=== PATIENT | female | born 1995 | race Caucasian/White ===

== ENCOUNTER 2016-12-15 16:13 | Inpatient (IN) | payer OTHER ==
[~2016-12-15] VITALS: Ht 154.9 cm; Wt 63.4 kg
[2016-12-15 17:50] VITALS: BP 123/86; PULSE 101; RESP 20
[2016-12-15 17:58] VITALS: Ht 154.9 cm; Wt 63.4 kg
[2016-12-15] MEDS ORDERED: ONDANSETRON 4 MG INJ IV PRN (18:30)
[2016-12-15] MEDS ORDERED: ACETAMINOPHEN 325 MG TAB PO PRN ×2 (18:30→22:30)
[2016-12-15] MEDS: morphine 2 MG INJ IV PRN ×2 (18:54→22:06)
[2016-12-15] MEDS: D5W-0.45 NACL + KCL 20 MEQ 1,000 ML IV SCH (19:50)
[2016-12-15 20:42] VITALS: BP 119/74
[2016-12-15] MEDS ORDERED: INFLUENZA VIRUS VACCINE 0.5 ML SYG IM* ONE (22:00)
[2016-12-16 02:00] VITALS: BP 130/86
[2016-12-16] MEDS: morphine 2 MG INJ IV PRN ×7 (02:27→21:57)
[2016-12-16 06:17] LABS: BASOPHIL # 0.1 10^3/ul (0.0-0.1); EOSINOPHILS # 0.1 10^3/ul (0.0-0.5); EOSINOPHILS % 1.7 % (0.0-7.0); HEMATOCRIT 28.6 % (37.0-47.0); HEMOGLOBIN 9.6 g/dl (12.0-16.0); LYMPHOCYTES # 2.8 10^3/ul (0.8-2.9); LYMPHOCYTES % 45.8 % (15.0-51.0); MEAN CORPUSCULAR HEMOGLOBIN 29.6 pg (29.0-33.0); MEAN CORPUSCULAR HGB CONC 33.6 g/dl (32.0-37.0); MEAN CORPUSCULAR VOLUME 88.3 fl (82.0-101.0); MEAN PLATELET VOLUME 9.1 fl (7.4-10.4); MONOCYTE # 0.5 10^3/ul (0.3-0.9); MONOCYTES % 7.6 % (0.0-11.0); NEUTROPHIL # 2.6 10^3/ul (1.6-7.5); NEUTROPHILS % 43.7 % (39.0-77.0); PLATELET COUNT 255 10^3/UL (140-415); RED BLOOD COUNT 3.24 10^6/ul (4.20-5.40); RED CELL DISTRIBUTION WIDTH 14.2 % (11.5-14.5)
[2016-12-16 06:45] LABS: ALBUMIN 3.6 g/dl (3.3-4.9); ALBUMIN/GLOBULIN RATIO 0.97; BILIRUBIN,INDIRECT 0.6 mg/dl (0-1.1); BILIRUBIN,TOTAL 0.6 mg/dl (0.2-1.3); CALCIUM 8.1 mg/dl (8.4-10.2); CREATININE 0.61 mg/dl (0.44-1.00); TOTAL PROTEIN 7.3 g/dl (6.1-8.1)
[2016-12-16 08:30] VITALS: BP 123/81; RESP 18
[2016-12-16] MEDS: D5W-0.45 NACL + KCL 20 MEQ 1,000 ML IV SCH ×2 (09:02→23:02)
--- NOTE | 2016-12-16 12:41 | HP ---
DATE OF ADMISSION: 12/15/2016 CHIEF COMPLAINT: Abdominal pain. HISTORY OF PRESENT ILLNESS: The patient is a 21-year-old female with past medical history positive for ETOH, history of GI bleed, pancreatitis. The patient presented to [facility] with complaints of abdominal pain and hematemesis for the last couple of weeks. According to medical records the patient reportedly had seizure, however, she does not remember that. The patient denies any fever or chills. Denies any chest pain. Denies any shortness of breath. Denies any diarrhea or constipation. Denies dysuria. The patient stated that she was previously hospitalized a couple of weeks ago with GI bleed. The patient underwent CT of the abdomen and pelvis at [facility] which revealed interval worsening of gallbladder wall thickening with increase in peritoneal edema and fluid overlying the upper abdominal peritoneal and in the right hepatic renal fossa. Also noted subtle left renal striations, nonspecific, and nonsignificant surrounding inflammatory fat stranding, hepatomegaly and bibasilar dependent atelectasis. This patient also underwent chest x-ray, which revealed left lower lobe subsegmental atelectasis, with possible developing pneumonia. The patient required IV morphine for pain controlled and patient was transferred to [facility] for insurance reasons. PAST MEDICAL HISTORY: Per HPI. PAST SURGICAL HISTORY: Patient denies having any surgeries in the past. FAMILY HISTORY: Noncontributory. SOCIAL HISTORY: Patient drinks alcohol, usually drinks 1 bottle of vodka every other day. Last drink 2 days ago. The patient denies any tobacco use. Denies any illicit drug use. REVIEW OF SYSTEMS: Twelve point review of system is negative unless mentioned in HPI. ALLERGIES: NO KNOWN ALLERGIES. HOME MEDICATIONS: No active scripts. PHYSICAL EXAMINATION: GENERAL APPEARANCE: The patient is well developed, well- nourished female, lethargic, but easily arousable. VITAL SIGNS: Temperature is 98.8, pulse is 76, blood pressure 123/81, respiratory rate 18, and oxygen saturation 96 percent on room air. HEENT: Head is atraumatic, normocephalic. Pupils equal, round, reactive to light and accommodation. Oral mucosa is pink and moist. NECK: Supple. No cervical lymphadenopathy. No thyromegaly. CHEST: Lungs clear bilaterally. There is no rhonchi, wheezes, rales noted. CARDIOVASCULAR: Normal S1, S2. No murmurs, gallops, clicks, or rubs noted. ABDOMEN: Round, soft, nondistended. The patient has a right upper quadrant tenderness on palpation and generalized tenderness. Bowel sounds present. There is no guarding, no rebound tenderness. EXTREMITIES: Pulses equal bilaterally 2 plus. No clubbing. No cyanosis. Pulses equal. SKIN: No rash or petechiae noted, except for left lower lesion consistent with herpes lesion. NEUROLOGICAL: Patient is awake, alert, and oriented times 3. No focal deficits noted. Motor strength is 5/5 in all extremities. LABORATORY DATA: On admission, CBC, white blood cells 6.0, hemoglobin 9.6, hematocrit 28.6, and platelets 255. Chemistry: Sodium is 138, potassium 4.0, chloride 104, carbon dioxide 27, anion gap 11, BUN is 5, and creatinine 0.61. Glucose 93, AST is 36, ALT is 40, alkaline phosphate is 100, and folate 41. ASSESSMENT AND PLAN: 1. Possible acute cholecystitis. Keep patient NPO, continue intravenous (IV) fluids. Start the patient on Zosyn. Dr. Gómez is asked to see patient in General Surgery consultation. I will continue morphine p.r.n. for pain and Zofran p.r.n. for nausea. 2. Possible community acquired pneumonia per chest x-ray. Continue patient on Zosyn. We will re-evaluate chest x-ray. 3. Alcohol abuse. We will have social media marketing analyst refer patient to alcohol cessation counseling. 4. We will start Pepcid for peptic ulcer disease prophylaxis and sequential compression device for deep venous thrombosis prophylaxis. Further recommendations based on clinical course. Plan of care discussed with Dr. Burnett. Dictated By: Joyce Ferrer NP /laura/yovanny /Document#: [id number]
[2016-12-16 14:00] VITALS: BP 113/72; RESP 20
[2016-12-16] MEDS ORDERED: NA PHOSPHATE/BIPHOS 133 ML ENEMA PR PRN (16:00)
[2016-12-16] MEDS ORDERED: PIPER-TAZO 3.375 GM IV (PMX) 100 ML ONE (17:34)
[2016-12-16] MEDS: PIPER-TAZO 3.375 GM IV (PMX) 100 ML IVPB SCH (18:05)
[2016-12-16 20:29] VITALS: BP 128/77; RESP 18
[2016-12-17] MEDS: PIPER-TAZO 3.375 GM IV (PMX) 100 ML IVPB SCH ×5 (00:03→23:39)
[2016-12-17] MEDS: morphine 2 MG INJ IV PRN ×7 (01:04→22:22)
[2016-12-17 02:52] VITALS: BP 107/64; RESP 18
[2016-12-17 05:23] LABS: BASOPHIL # 0.1 10^3/ul (0.0-0.1); EOSINOPHILS # 0.2 10^3/ul (0.0-0.5); EOSINOPHILS % 2.6 % (0.0-7.0); HEMATOCRIT 29.1 % (37.0-47.0); HEMOGLOBIN 9.9 g/dl (12.0-16.0); LYMPHOCYTES # 2.8 10^3/ul (0.8-2.9); LYMPHOCYTES % 44.6 % (15.0-51.0); MEAN CORPUSCULAR HEMOGLOBIN 29.6 pg (29.0-33.0); MEAN CORPUSCULAR VOLUME 86.9 fl (82.0-101.0); MEAN PLATELET VOLUME 9.6 fl (7.4-10.4); MONOCYTE # 0.5 10^3/ul (0.3-0.9); MONOCYTES % 8.3 % (0.0-11.0); NEUTROPHIL # 2.7 10^3/ul (1.6-7.5); NEUTROPHILS % 43.2 % (39.0-77.0); PLATELET COUNT 247 10^3/UL (140-415); RED BLOOD COUNT 3.35 10^6/ul (4.20-5.40); RED CELL DISTRIBUTION WIDTH 14.3 % (11.5-14.5); WHITE BLOOD COUNT 6.2 10^3/ul (4.8-10.8)
[2016-12-17 05:51] LABS: CALCIUM 8.6 mg/dl (8.4-10.2); CREATININE 0.65 mg/dl (0.44-1.00); POTASSIUM 3.9 mmol/L (3.5-5.1)
[2016-12-17 07:40] VITALS: BP 111/58; RESP 18
[2016-12-17] MEDS: FAMOTIDINE 20 MG INJ IV SCH (08:07)
[2016-12-17] MEDS ORDERED: LORAZEPAM 2 MG INJ IV ONE (08:30)
[2016-12-17] MEDS: D5W-0.45 NACL + KCL 20 MEQ 1,000 ML IV SCH ×2 (10:30→23:35)
[2016-12-17 11:51] VITALS: BP 113/60; PULSE 76; RESP 18
--- NOTE | 2016-12-17 13:52 | RADRPT ---
PROCEDURE: MRCP. CLINICAL INDICATION: Gallbladder wall edema and biliary dilatation. TECHNIQUE: MRCP was performed on a high field MRI scanner. Patient was examined without contrast. 3-D coronal rotating MIP images of the biliary tree are available for review. COMPARISON: None available. FINDINGS: The gallbladder is mildly distended. There are no discrete internal signal voids to suggest the pres ence of cholelithiasis. There is minimal mild gallbladder wall edema along the hepatic margin. There is no pericholecystic fluid. There is no intrahepatic or extrahepatic biliary duct dilatation. The common bile duct measures 4-5 mm, which is normal in diameter. There is no internal signal void with in the common bile duct to suggest the presence of choledocholithiasis. There is no pancreatic duct dilatation. The liver is enlarged measuring approximately 19.0 cm in a craniocaudal dimension. Scattered bands o f increased T2 signal intensity are present and may reflect mild edema. The spleen measures approxim ately 12.6 cm in a craniocaudal dimension which is within the upper range of normal. The pancreas an d adrenal glands are unremarkable. The kidneys are symmetric in size and signal intensity. There is no hydronephrosis or perinephric ed camille. The abdominal aorta is normal in caliber. There is no periaortic / retroperitoneal lymphadenopathy. The stomach is collapsed. The visualized portions of the small and large intestines are unremarkable . There is no ascites. IMPRESSION: Hepatomegaly with patchy signal abnormalities which may reflect mild parenchymal edema. Correlate wi th appropriate clinical data and with signs and symptoms of hepatitis. Nonspecific gallbladder wall edema. There is no evidence of cholelithiasis, choledocholithiasis or b iliary tract obstruction. RPTAT: AAQQ .Purvi Villa MD, Date Time Electronically viewed and signed by .Purvi Villa MD, MD on 12/17/2016 13:51 .T/
[2016-12-17 15:02] VITALS: BP 108/60; RESP 18
--- NOTE | 2016-12-17 15:20 | PN ---
Date/Time of Note Date/Time of Note DATE: 12/17/16 TIME: 15:16 Assessment/Plan Lines/Catheters IV Catheter Type (from Nrsg): Peripheral IV Urinary Cath still in place: No Assessment/Plan Assessment/Plan 1. Left otitis Media =- 1. Possible acute cholecystitis. - NPO, continue intravenous (IV) fluids. - Zosyn. - per surgery- Dr. Gómez - morphine p.r.n. for pain and Zofran p.r.n. for nausea. 2. Possible community acquired pneumonia per chest x-ray.Continue patient on Zosyn. We will re-evaluate chest x-ray. 3. Alcohol abuse. - social science analyst refer patient to alcohol cessation counseling. 4. Pepcid for peptic ulcer disease prophylaxis 5. Sequential compression device for deep venous thrombosis prophylaxis. Further recommendations based on clinical course. Plan of care discussed with Dr. Burnett. Exam/Review of Systems Vital Signs Vitals Vital Signs Date Time Temp Pulse Resp B/P Pulse Ox O2 Delivery O2 Flow Rate FiO2 12/17/16 15:02 98.0 70 18 108/60 97 12/17/16 11:51 Room Air Intake and Output 12/16/16 12/16/16 12/17/16 15:00 23:00 07:00 Intake Total 2260 ml 750 ml Balance 2260 ml 750 ml Results Result Diagram: 12/17/16 0456 12/17/16 0456 Results 24 hrs Laboratory Tests Test 12/17/16 04:56 White Blood Count 6.2 Red Blood Count 3.35 L Hemoglobin 9.9 L Hematocrit 29.1 L Mean Corpuscular Volume 86.9 Mean Corpuscular Hemoglobin 29.6 Mean Corpuscular Hemoglobin Concent 34.0 Red Cell Distribution Width 14.3 Platelet Count 247 Mean Platelet Volume 9.6 Neutrophils % 43.2 Lymphocytes % 44.6 Monocytes % 8.3 Eosinophils % 2.6 Basophils % 1.0 Nucleated Red Blood Cells % 0.0 Neutrophils # 2.7 Lymphocytes # 2.8 Monocytes # 0.5 Eosinophils # 0.2 Basophils # 0.1 Nucleated Red Blood Cells # 0.0 Sodium Level 139 Potassium Level 3.9 Chloride Level 104 Carbon Dioxide Level 27 Anion Gap 12 Blood Urea Nitrogen 3 L Creatinine 0.65 Glucose Level 118 Calcium Level 8.6 Medications Medications Current Medications Piperacillin Sod/ Tazobactam Sod 100 ml @ 200 mls/hr Q6 IVPB Last administered on 12/17/16 12:01; Admin Dose 200 MLS/HR; Start 12/16/16 at 18:45 Potassium Chloride/Dextrose/ Sod Cl (D5-1/2ns + KCl 20 Meq) 1,000 ml @ 75 mls/ hr [id number] IV Last administered on 12/16/16 23:02; Admin Dose 75 MLS/HR; Start 12/15/16 at 18:30 Ondansetron HCl (Zofran Inj) 4 mg Q6H PRN IV NAUSEA AND/OR VOMITING; Start at 18:30 Morphine Sulfate (morphine) 2 mg Q3 PRN IV pain Last administered on 12/17/16 12:01; Admin Dose 2 MG; Start 12/15/16 at 18:30 Acetaminophen (Tylenol Tab) 650 mg Q4H PRN PO PAIN AND OR ELEVATED TEMP; Start 12/15/16 at 22:30 Famotidine (Pepcid Iv) 20 mg DAILY IV Last administered on 12/17/16 08:07; Admin Dose 20 MG; Start 12/17/16 at 09:00 Sodium Biphosphate/ Sodium Phosphate (Fleet Enema) 133 ml PRN PRN IN CONSTIPATION Last administered on 12/16/16 23:36; Admin Dose 133 ML; Start at 16:00 TALIB FISCHER Dec 17, 2016 15:20
[2016-12-17 16:53] LABS: HAAIG REFLEX REFLEX FILED
--- NOTE | 2016-12-17 17:44 | PN ---
DATE: 12/17/2016 SUBJECTIVE: States that feels better, the appetite is good. She has tolerated clear liquids completely. No fever. No nausea, no vomiting. She has had bowel movement today. VITAL SIGNS: Temperature today is 98.3, heart rate is 76, respiration 18, blood pressure 113/60, saturation 95% room air. LABORATORY DATA: WBC 6200 with 43% segmented, hemoglobin 9.9, hematocrit 29.1. Chemistry: BUN and creatinine, sodium and potassium within normal limits. IMAGES: MRCP was done and the report is as follows: 1. Hepatomegaly with patchy signal abnormalities which may reflect mild parenchymal edema. Correlate with appropriate clinical data and with signs and symptoms of hepatitis. 2. Nonspecific gallbladder wall edema. There is no evidence of cholelithiasis, choledocholithiasis or biliary tract obstruction. Abdomen is soft, mild tenderness right upper quadrant and left upper quadrant. Patient wants to eat more and is hungry. IMPRESSION: Patient has been transferred here with abdominal pain requiring morphine. His lab data so far is within normal limits and magnetic resonance cholangiopancreatography did not show any evidence of gallstone or evidence of choledocholithiasis or common bile duct stone or dilatation of common bile duct. I think requires Gastroenterology consultation for this patient. There is suspicion that she has also seeking pain medication and narcotic as well, this is a consideration. I would recommend to do HIDA scan and also more evaluation of what appears on the CT scan to be a pancreatic cyst in the tail of the pancreas. Dictated By: Luis Armando Dumas MD /laura/hedy /Document#: [id number] JHONNY
[2016-12-17 18:06] LABS: HEPATITIS B CORE ANTIBODY NEGATIVE (NEGATIVE)
[2016-12-17 20:59] VITALS: BP 120/88; RESP 17
[2016-12-17] MEDS: CIPROFLOXACIN HCL OTIC DROP 0.25 ML LEFT EAR SCH (22:31)
--- NOTE | 2016-12-18 01:29 | CONS ---
DATE OF ADMISSION: 12/15/2016 DATE OF CONSULTATION: 12/17/2016 REQUESTING PHYSICIAN: Vincent Gómez MD REASON FOR CONSULTATION: Abdominal pain, possible gallbladder disease, and cholecystitis. HISTORY OF PRESENT ILLNESS: This is a 21-year-old female who was transferred from [facility] on the 15 of December, and the patient actually went to [facility] because of continued right upper quadrant and epigastric abdominal pain and some nausea. History of present illness goes back to about 3 weeks ago when the patient had abdominal pain mainly in the right upper quadrant and epigastric area, and went to a hospital in [place]. They found that she had some pathology grossly. She states that she was told that she had pancreatitis and a cyst of the pancreas. So after 4 days they discharged the patient, she goes home on pain medication, and after a few days she goes to [facility] and over there, because of insurance purposes, they did some investigation, CT scan, ultrasound, and they transferred the patient to this hospital. The patient denies diarrhea or constipation. At [facility] they did a CT scan, which she states revealed interval worsening of gallbladder wall thickening with increase in peritoneal edema and fluid overlying the upper abdominal peritoneum and in the right renal fossa. Also, they noticed some left renal striations, nonspecific, and non-significant surrounding inflammatory fat stranding, hepatomegaly, and bibasilar dependent atelectasis. Also, the patient had a chest x-ray earlier which revealed left lower lobe segmental atelectasis with possible developing pneumonia. The patient has required morphine IV for pain control. PAST MEDICAL HISTORY: As history of present illness. PAST SURGICAL HISTORY: The patient denies any operations in the past. FAMILY HISTORY: Noncontributory. SOCIAL HISTORY: Patient admits that she drinks alcohol, usually drinks 1 bottle of vodka every other day. The patient denies tobacco or illicit drug abuse. REVIEW OF SYSTEMS: Same as history of present illness and past medical history. ALLERGIES: NOT KNOWN. PHYSICAL EXAMINATION: GENERAL: The patient is alert, awake, oriented x3. HEENT: There is herpes simplex lower lip. Normocephalic. NECK: Trach is midline. No thyroid enlargement. No adenopathy. HEART: Regular rhythm. No murmur. LUNGS: Clear to auscultation. ABDOMEN: Abdomen is not distended. Mildly protuberant with fat. Bowel sound is present, almost normal. There is mild tenderness all over. On deep pressure, especially in the left upper quadrant and right upper quadrant. EXTREMITIES: Lower extremities, no pitting edema. LABORATORY: Sodium 138, potassium 4, calcium 8.1, BUN and creatinine normal. Globulin 3.7, slightly elevated, albumin 3.6. AST, ALT, and total bilirubin within normal limits. WBC 6000 with 43 percent segmented neutrophils, hemoglobin 9.6, hematocrit 28.6. IMAGING: I actually reviewed the CT scan copy from [facility] with 1 of the radiologists down here. There is mild edema surrounding the gallbladder. There is possibly dilatation of intrahepatic biliary tree. There was something at the tail of the pancreas, which the radiologist said this is a cyst of the pancreas possibly, he could not mention if this is pseudocyst or another kind of cyst. Liver is enlarged, spleen is slightly enlarged. Otherwise, no other findings except a lot of stool in the left colon and in the rectal area. IMPRESSION AND RECOMMENDATIONS: 1. This is a 22-year-old female with history of alcohol abuse, who is admitted here with possible cholecystitis, but ultrasound and CT scan has not revealed evidence of any stone in the gallbladder or common bile duct. 2. Possible community acquired pneumonia per chest x-ray. The patient has been started on Zosyn per medical service. 3. Alcohol abuse as was mentioned. company laundry worker has been informed to evaluate the patient. The patient is receiving Pepcid for peptic ulcer prophylaxis and also SCD for prophylaxis of deep vein thrombosis. My recommendation is to proceed with the performance of an MRCP to find out exactly what is in the pathology in the gallbladder and common bile duct. Meanwhile, the patient is started on clear liquids. Dictated By: Luis Armando Dumas MD /laura/martina /Document#: [id number]
[2016-12-18 02:00] VITALS: BP 117/86; RESP 17
[2016-12-18] MEDS: morphine 2 MG INJ IV PRN ×7 (02:05→21:21)
[2016-12-18] MEDS: PIPER-TAZO 3.375 GM IV (PMX) 100 ML IVPB SCH ×3 (05:13→17:31)
[2016-12-18 05:29] LABS: BASOPHIL # 0.1 10^3/ul (0.0-0.1); EOSINOPHILS # 0.2 10^3/ul (0.0-0.5); EOSINOPHILS % 3.6 % (0.0-7.0); HEMATOCRIT 28.9 % (37.0-47.0); HEMOGLOBIN 9.5 g/dl (12.0-16.0); LYMPHOCYTES # 3.2 10^3/ul (0.8-2.9); LYMPHOCYTES % 53.4 % (15.0-51.0); MEAN CORPUSCULAR HEMOGLOBIN 28.9 pg (29.0-33.0); MEAN CORPUSCULAR HGB CONC 32.9 g/dl (32.0-37.0); MEAN CORPUSCULAR VOLUME 87.8 fl (82.0-101.0); MEAN PLATELET VOLUME 9.9 fl (7.4-10.4); MONOCYTE # 0.6 10^3/ul (0.3-0.9); NEUTROPHIL # 1.9 10^3/ul (1.6-7.5); NEUTROPHILS % 31.8 % (39.0-77.0); PLATELET COUNT 232 10^3/UL (140-415); RED BLOOD COUNT 3.29 10^6/ul (4.20-5.40); RED CELL DISTRIBUTION WIDTH 14.4 % (11.5-14.5); WHITE BLOOD COUNT 5.9 10^3/ul (4.8-10.8)
[2016-12-18 05:56] LABS: CALCIUM 9.4 mg/dl (8.4-10.2); CREATININE 0.69 mg/dl (0.44-1.00); POTASSIUM 4.1 mmol/L (3.5-5.1)
[2016-12-18] MEDS: FAMOTIDINE 20 MG INJ IV SCH (08:26)
[2016-12-18] MEDS: CIPROFLOXACIN HCL OTIC DROP 0.25 ML LEFT EAR SCH ×2 (08:26→22:46)
[2016-12-18 08:43] VITALS: BP 109/67; RESP 20
[2016-12-18 14:00] VITALS: BP 117/81; RESP 21
--- NOTE | 2016-12-18 15:05 | RADRPT ---
PROCEDURE: HIDA scan CLINICAL INDICATION: 21 -year-old patient complaining of right upper quadrant pain TECHNIQUE: Following the intravenous injection of 8 mCi of Tc-99m mebrofenin, multiple images of t he abdomen were obtained up to 100 minutes post injection. COMPARISON: No prior HIDA scans. FINDINGS: The liver is promptly visualized, demonstrates homogeneous distribution of radionuclide. There is visualization of the common bile duct, gallbladder and gastrointestinal activity within nor mal time. IMPRESSION: No evidence to suggest the presence of common bile or cystic ducts obstruction. RPTAT: HH Physician Wendy Date Time Electronically viewed and signed by Physician Wendy on 12/18/2016 15:04 /
[2016-12-18] MEDS: D5W-0.45 NACL + KCL 20 MEQ 1,000 ML IV SCH (17:30)
--- NOTE | 2016-12-18 20:24 | PN ---
Date/Time of Note Date/Time of Note DATE: 12/18/16 TIME: 20:20 Assessment/Plan VTE Prophylaxis VTE Prophylaxis Intervention: SCD's Lines/Catheters IV Catheter Type (from Nrs): Peripheral IV Central line still needed: Yes Urinary Cath still in place: No Assessment/Plan Chief Complaint/Hosp Course Patient denies any nausea and vomiting, abdominal pain is well controlled, diet advanced to regular, will obtain chest x-ray to evaluate patients for pneumonia. Problems: Assessment/Plan -Abdominal pain, resolving. No evidence of cholelithiasis, choledocholithiasis or biliary tract obstruction per MRCP Dr. Dumas is allowing in General Surgery consultation. continue morphine p.r.n. for pain and Zofran p.r.n. for nausea. - Possible community acquired pneumonia per chest x-ray. Continue patient on Zosyn. We will re-evaluate chest x-ray. - Alcohol abuse. social studies teacher refer patient to alcohol cessation counseling. Exam/Review of Systems Vital Signs Vitals Vital Signs Date Time Temp Pulse Resp B/P Pulse Ox O2 Delivery O2 Flow Rate FiO2 12/18/16 14:00 97.7 72 21 117/81 98 12/17/16 11:51 Room Air Intake and Output 12/17/16 12/17/16 12/18/16 15:00 23:00 07:00 Intake Total 100 ml 1020 ml 1050 ml Output Total 600 ml Balance 100 ml 1020 ml 450 ml Exam Constitutional: alert, oriented Respiratory: clear to auscultation Gastrointestinal: non-tender, soft Extremities: normal pulses Results Result Diagram: 12/18/16 0505 12/18/16 0505 Results 24 hrs Laboratory Tests Test 12/18/16 05:05 White Blood Count 5.9 Red Blood Count 3.29 L Hemoglobin 9.5 L Hematocrit 28.9 L Mean Corpuscular Volume 87.8 Mean Corpuscular Hemoglobin 28.9 L Mean Corpuscular Hemoglobin Concent 32.9 Red Cell Distribution Width 14.4 Platelet Count 232 Mean Platelet Volume 9.9 Neutrophils % 31.8 L Lymphocytes % 53.4 H Monocytes % 10.0 Eosinophils % 3.6 Basophils % 1.0 Nucleated Red Blood Cells % 0.0 Neutrophils # 1.9 Lymphocytes # 3.2 H Monocytes # 0.6 Eosinophils # 0.2 Basophils # 0.1 Nucleated Red Blood Cells # 0.0 Sodium Level 139 Potassium Level 4.1 Chloride Level 103 Carbon Dioxide Level 29 Anion Gap 11 Blood Urea Nitrogen 2 L Creatinine 0.69 Glucose Level 105 Calcium Level 9.4 Medications Medications Current Medications Piperacillin Sod/ Tazobactam Sod 100 ml @ 200 mls/hr Q6 IVPB Last administered on 12/18/16 17:31; Admin Dose 200 MLS/HR; Start 12/16/16 at 18:45 Potassium Chloride/Dextrose/ Sod Cl (D5-1/2ns + KCl 20 Meq) 1,000 ml @ 75 mls/ hr [id number] IV Last administered on 12/18/16 17:30; Admin Dose 75 MLS/HR; Start 12/15/16 at 18:30 Ondansetron HCl (Zofran Inj) 4 mg Q6H PRN IV NAUSEA AND/OR VOMITING; Start at 18:30 Morphine Sulfate (morphine) 2 mg Q3 PRN IV pain Last administered on 12/18/16 18:04; Admin Dose 2 MG; Start 12/15/16 at 18:30 Acetaminophen (Tylenol Tab) 650 mg Q4H PRN PO PAIN AND OR ELEVATED TEMP; Start 12/15/16 at 22:30 Famotidine (Pepcid Iv) 20 mg DAILY IV Last administered on 12/18/16 08:26; Admin Dose 20 MG; Start 12/17/16 at 09:00 Sodium Biphosphate/ Sodium Phosphate (Fleet Enema) 133 ml PRN PRN CO CONSTIPATION Last administered on 12/16/16 23:36; Admin Dose 133 ML; Start at 16:00 Ciprofloxacin HCl (Ciprofloxacin HCl Otic) 2 drop BID LEFT EAR Last administered on 12/18/16 08:26; Admin Dose 2 DROP; Start 12/17/16 at 21:00 LESLIE STEVENS Dec 18, 2016 20:24
[2016-12-18 20:48] VITALS: BP 103/66; RESP 18
--- NOTE | 2016-12-18 21:59 | RADRPT ---
PROCEDURE: XR Chest. CLINICAL INDICATION: Shortness of breath. TECHNIQUE: Single frontal view. COMPARISON: None. FINDINGS: The lungs are clear. The heart size is normal. There is no pleural effusion. There is no pneumothorax. IMPRESSION: 1. Normal chest radiograph. RPTAT: QQ .Elroy Ulloa MD, Date Time Electronically viewed and signed by .Elroy Ulloa MD, on 12/18/2016 21:58 .R/
[2016-12-19] MEDS: PIPER-TAZO 3.375 GM IV (PMX) 100 ML IVPB SCH ×5 (00:09→23:29)
[2016-12-19] MEDS: morphine 2 MG INJ IV PRN ×7 (00:47→23:29)
[2016-12-19 02:47] VITALS: BP 109/66; RESP 18
[2016-12-19 06:37] LABS: CALCIUM 10.1 mg/dl (8.4-10.2); CREATININE 0.65 mg/dl (0.44-1.00); POTASSIUM 3.9 mmol/L (3.5-5.1)
[2016-12-19 08:00] VITALS: BP 125/89; RESP 20
[2016-12-19] MEDS: FAMOTIDINE 20 MG INJ IV SCH (09:28)
[2016-12-19] MEDS: CIPROFLOXACIN HCL OTIC DROP 0.25 ML LEFT EAR SCH ×2 (09:28→21:07)
--- NOTE | 2016-12-19 12:50 | PN ---
DATE: 12/18/2016 SUBJECTIVE: The patient feels better, has tolerated full liquid diet. Yesterday had bowel movement. No nausea, no vomiting. Abdominal pain a little bit less. OBJECTIVE: GENERAL: Alert, awake, and oriented x3. VITAL SIGNS: Temperature 97.8, heart rate 62, respirations 20, blood pressure 117/81. Saturation 98 percent room air. LABORATORY DATA: WBC 5900 today, with the neutrophils 31 percent and lymphocytes 53 percent. Hemoglobin 9.5, hematocrit 28.9. Chemistry: BUN and creatinine, sodium and potassium within normal limits. Serology for hepatitis. B surface antigen negative. Hepatitis B core antibody negative. Hepatitis C antibody negative. IMAGING: HIDA scan was done yesterday which did not reveal presence of any obstruction of cystic duct of common bile duct. The report of the CT scan was reviewed again by myself because in my history and physical as mentioned, somebody had mentioned presents of pancreatic cyst, but there is no mention of pancreatic cyst in the body of the report of the CT scan from [facility]. ASSESSMENT AND PLAN: This is a 22-year-old patient who was transferred from [facility] because of abdominal pain. Current possibility of other cholecystitis. Here to be evaluated the patient. There is has been some swelling and edema around the gallbladder and in the vicinity is but it could have been due to the previous pancreatitis (alcoholic). In any case, we did MRCP which did not reveal any pathology in the biliary tree. HIDA scan which did not show any obstruction of cystic or common bile duct. I do not think patient has cholecystitis, and there is no evidence of a stone in the gallbladder. The patient does not have hepatitis. Therefore, should be further worked up by GI and internal medicine if there is concerned because of pain. There is no surgical abdomen at this time. Dictated By: Luis Armando Dumas MD /laura/kobi /Document#: [id number]
--- NOTE | 2016-12-19 13:04 | PN ---
Date/Time of Note Date/Time of Note DATE: 12/19/16 TIME: 13:03 Assessment/Plan VTE Prophylaxis VTE Prophylaxis Intervention: other Lines/Catheters IV [facility]from [facility] Saline Lock Urinary Cath still in place: No Assessment/Plan Chief Complaint/Hosp Course -Abdominal pain, resolving. No evidence of cholelithiasis, choledocholithiasis or biliary tract obstruction per MRCP Dr. Dumas is allowing in General Surgery consultation. continue morphine p.r.n. for pain and Zofran p.r.n. for nausea. - Possible community acquired pneumonia per chest x-ray. Continue patient on Zosyn. We will re-evaluate chest x-ray. - Alcohol abuse. social human services assistants refer patient to alcohol cessation counseling. Problems: Subjective 24 Hr Interval Summary Free Text/Dictation Patient still have abdoominal pain Exam/Review of Systems Vital Signs Vitals Vital Signs Date Time Temp Pulse Resp B/P Pulse Ox O2 Delivery O2 Flow Rate FiO2 12/19/16 08:00 97.8 79 20 125/89 97 12/17/16 11:51 Room Air Intake and Output 12/18/16 12/18/16 12/19/16 15:00 23:00 07:00 Intake Total 100 ml 1910 ml 900 ml Output Total 1300 ml Balance 100 ml 610 ml 900 ml Exam Constitutional: well developed Head: atraumatic, normocephalic Neck: supple Respiratory: clear to auscultation Cardiovascular: regular rate and rhythm Gastrointestinal: non-tender, soft Extremities: normal pulses Results Result Diagram: 12/18/16 0505 12/19/16 0600 Results 24 hrs Laboratory Tests Test 12/19/16 06:00 Sodium Level 139 Potassium Level 3.9 Chloride Level 103 Carbon Dioxide Level 28 Anion Gap 12 Blood Urea Nitrogen 8 Creatinine 0.65 Glucose Level 112 Calcium Level 10.1 Medications Medications Current Medications Piperacillin Sod/ Tazobactam Sod (Zosyn 3.375gm/ 100 ml (Pmx)) 100 ml @ 200 mls /hr Q6 IVPB Last administered on 12/19/16t 12:50; Admin Dose 200 MLS/HR; Start 12/16/16 at 18:45 Ondansetron HCl (Zofran Inj) 4 mg Q6H PRN IV NAUSEA AND/OR VOMITING; Start at 18:30 Morphine Sulfate (morphine) 2 mg Q3 PRN IV pain Last administered on 12/19/16 12:50; Admin Dose 2 MG; Start 12/15/16 at 18:30 Acetaminophen (Tylenol Tab) 650 mg Q4H PRN PO PAIN AND OR ELEVATED TEMP; Start 12/15/16 at 22:30 Famotidine (Pepcid Iv) 20 mg DAILY IV Last administered on 12/19/16 09:28; Admin Dose 20 MG; Start 12/17/16 at 09:00 Sodium Biphosphate/ Sodium Phosphate (Fleet Enema) 133 ml PRN PRN [place] CONSTIPATION Last administered on 12/16/16 23:36; Admin Dose 133 ML; Start at 16:00 Ciprofloxacin HCl (Ciprofloxacin HCl Otic) 2 drop BID LEFT EAR Last administered on 12/19/16 09:28; Admin Dose 2 DROP; Start 12/17/16 at 21:00 RG RAMIREZ Dec 19, 2016 13:03
[2016-12-19 14:00] VITALS: BP 133/67; RESP 21
[2016-12-19 19:40] VITALS: BP 101/62; RESP 20
[2016-12-20 02:00] VITALS: BP 101/58; RESP 20
[2016-12-20] MEDS: morphine 2 MG INJ IV PRN ×6 (04:47→21:16)
[2016-12-20] MEDS: PIPER-TAZO 3.375 GM IV (PMX) 100 ML IVPB SCH ×3 (06:03→17:30)
[2016-12-20 08:00] VITALS: BP 112/68; RESP 18
[2016-12-20] MEDS: CIPROFLOXACIN HCL OTIC DROP 0.25 ML LEFT EAR SCH ×2 (08:28→19:45)
[2016-12-20] MEDS: FAMOTIDINE 20 MG INJ IV SCH (08:28)
--- NOTE | 2016-12-20 11:23 | PN ---
Date/Time of Note Date/Time of Note DATE: 12/20/16 TIME: 11:23 Assessment/Plan VTE Prophylaxis VTE Prophylaxis Intervention: other Lines/Catheters IV Catheter Type (from [facility]): Saline Lock Urinary Cath still in place: No Assessment/Plan Chief Complaint/Hosp Course -Abdominal pain, resolving. No evidence of cholelithiasis, choledocholithiasis or biliary tract obstruction per MRCP Dr. Dumas is allowing in General Surgery consultation. continue morphine p.r.n. for pain and Zofran p.r.n. for nausea. - Possible community acquired pneumonia per chest x-ray. Continue patient on Zosyn. We will re-evaluate chest x-ray. - Alcohol abuse. social worker aide refer patient to alcohol cessation counseling. Problems: Subjective 24 Hr Interval Summary Free Text/Dictation Patient has no complaints Exam/Review of Systems Vital Signs Vitals Vital Signs Date Time Temp Pulse Resp B/P Pulse Ox O2 Delivery O2 Flow Rate FiO2 12/20/16 08:00 98.1 73 18 112/68 97 12/17/16 11:51 Room Air Intake and Output 12/19/16 12/19/16 12/20/16 15:00 23:00 07:00 Intake Total 100 ml 1160 ml 950 ml Balance 100 ml 1160 ml 950 ml Exam Constitutional: well developed Head: atraumatic, normocephalic Neck: supple Respiratory: clear to auscultation Cardiovascular: regular rate and rhythm Gastrointestinal: non-tender, soft Extremities: normal pulses Results Result Diagram: 12/18/16 0505 12/19/16 0600 Medications Medications Current Medications Piperacillin Sod/ Tazobactam Sod (Zosyn 3.375gm/ 100 ml (Pmx)) 100 ml @ 200 mls /hr Q6 IVPB Last administered on 12/20/16 06:03; Admin Dose 200 MLS/HR; Start 12/16/16 at 18:45 Ondansetron HCl (Zofran Inj) 4 mg Q6H PRN IV NAUSEA AND/OR VOMITING; Start at 18:30 Morphine Sulfate (morphine) 2 mg Q3 PRN IV pain Last administered on 12/20/16 08:28; Admin Dose 2 MG; Start 12/15/16 at 18:30 Acetaminophen (Tylenol Tab) 650 mg Q4H PRN PO PAIN AND OR ELEVATED TEMP; Start 12/15/16 at 22:30 Famotidine (Pepcid Iv) 20 mg DAILY IV Last administered on 12/20/16 08:28; Admin Dose 20 MG; Start 12/17/16 at 09:00 Sodium Biphosphate/ Sodium Phosphate (Fleet Enema) 133 ml PRN PRN [place] CONSTIPATION Last administered on 12/16/16 23:36; Admin Dose 133 ML; Start at 16:00 Ciprofloxacin HCl (Ciprofloxacin HCl Otic) 2 drop BID LEFT EAR Last administered on 12/20/16 08:28; Admin Dose 2 DROP; Start 12/17/16 at 21:00 RG RAMIREZ Dec 20, 2016 11:23
[2016-12-20 14:00] VITALS: BP 104/66; RESP 18
[2016-12-20 19:37] VITALS: BP 108/60; RESP 20
--- NOTE | 2016-12-20 23:22 | PN ---
DATE: 12/20/2016 SUBJECTIVE DATA: The patient states that she still has some pain in the right upper quadrant. It seems that after eating food, she feels nauseous, but no vomiting. Has not had a bowel movement since admission, but passing gas. No fever, no chills. OBJECTIVE DATA: VITAL SIGNS: Temperaturei 98.1, pulse 73, respirations 18, blood pressure 112/68, saturation 97 percent on room air. GENERAL: Alert and oriented times 3. Does not appear in acute distress. LUNGS: Clear. ABDOMEN: Soft. Mild tenderness in right upper quadrant on deep pressure. EXTREMITIES: Lower extremities, no calf tenderness, no pitting edema. LABORATORY AND DIAGNOSTIC DATA: No labs today. IMAGING: Last chest x-ray was done 2 days ago. Report says there is normal chest radiograph. ASSESSMENT AND PLAN: 1. A 22-year-old female transferred from [facility] because of possible cholecystitis and possible community acquired pneumonia. The patient was started on Zosyn. HIDA scan negative. No gallstones. Two days ago her chest x-ray was normal reported. 2. From a surgical point of view, the patient does not have acute cholecystitis, does not have any acute abdomen. 3. Final treatment and management and decision for discharge is going to be on medical service. 4. The surgical service is continuing to follow the patient. Dictated By: MD COLLEEN Morales/laura/martina /Document#: [id number] JHONNY
[2016-12-21] MEDS: PIPER-TAZO 3.375 GM IV (PMX) 100 ML IVPB SCH ×4 (00:19→18:25)
[2016-12-21] MEDS: morphine 2 MG INJ IV PRN ×6 (00:23→18:25)
[2016-12-21 02:03] VITALS: BP 146/76; RESP 18
[2016-12-21 05:29] LABS: BASOPHIL # 0.1 10^3/ul (0.0-0.1); BASOPHILS % 0.7 % (0.0-2.0); EOSINOPHILS # 0.3 10^3/ul (0.0-0.5); EOSINOPHILS % 2.9 % (0.0-7.0); HEMATOCRIT 31.4 % (37.0-47.0); HEMOGLOBIN 10.1 g/dl (12.0-16.0); LYMPHOCYTES # 3.8 10^3/ul (0.8-2.9); LYMPHOCYTES % 42.5 % (15.0-51.0); MEAN CORPUSCULAR HEMOGLOBIN 28.7 pg (29.0-33.0); MEAN CORPUSCULAR HGB CONC 32.2 g/dl (32.0-37.0); MEAN CORPUSCULAR VOLUME 89.2 fl (82.0-101.0); MEAN PLATELET VOLUME 10.4 fl (7.4-10.4); MONOCYTE # 0.8 10^3/ul (0.3-0.9); MONOCYTES % 9.3 % (0.0-11.0); NEUTROPHILS % 44.5 % (39.0-77.0); PLATELET COUNT 251 10^3/UL (140-415); RED BLOOD COUNT 3.52 10^6/ul (4.20-5.40); RED CELL DISTRIBUTION WIDTH 15.5 % (11.5-14.5); WHITE BLOOD COUNT 8.9 10^3/ul (4.8-10.8)
[2016-12-21 05:46] LABS: CALCIUM 9.7 mg/dl (8.4-10.2); CREATININE 0.74 mg/dl (0.44-1.00)
[2016-12-21 08:03] VITALS: BP 99/61; RESP 16
[2016-12-21] MEDS: FAMOTIDINE 20 MG INJ IV SCH (08:09)
[2016-12-21 14:32] VITALS: BP 112/60; RESP 16
[2016-12-21] MEDS: CIPROFLOXACIN HCL OTIC DROP 0.25 ML LEFT EAR SCH (17:02)
[2016-12-21] MEDS ORDERED: FAMO20TA18 PO (18:47)
[2016-12-21] MEDS ORDERED: LEVO500T72 PO (18:47)
[2016-12-21] MEDS ORDERED: METR500T PO (18:47)
[2016-12-21] MEDS ORDERED: HYDR-906 PO (18:47)
[2016-12-21 19:40] VITALS: BP 111/72; PULSE 89; RESP 18
--- NOTE | 2016-12-21 19:45 | DS ---
Date/Time of Note Date/Time of Note DATE: 12/21/16 TIME: 19:43 Discharge Summary Admission/Discharge Info Admit Date/Time Dec 15, 2016 at 17:41 Discharge Date/Time Patient Condition: Stable Hx of Present Illness The patient is a 21-year-old female with past medical history positive for ETOH, history of GI bleed, pancreatitis. The patient presented to [facility] with complaints of abdominal pain and hematemesis for the last couple of weeks. According to medical records the patient reportedly had seizure, however, she does not remember that. The patient denies any fever or chills. Denies any chest pain. Denies any shortness of breath. Denies any diarrhea or constipation. Denies dysuria. The patient stated that she was previously hospitalized a couple of weeks ago with GI bleed. The patient underwent CT of the abdomen and pelvis at [facility] which revealed interval worsening of gallbladder wall thickening with increase in peritoneal edema and fluid overlying the upper abdominal peritoneal and in the right hepatic renal fossa. Also noted subtle left renal striations, nonspecific, and nonsignificant surrounding inflammatory fat stranding, hepatomegaly and bibasilar dependent atelectasis. This patient also underwent chest x-ray, which revealed left lower lobe subsegmental atelectasis, with possible developing pneumonia. The patient required IV morphine for pain controlled and patient was transferred to [facility] for insurance reasons. Hospital Course -Abdominal pain, resolving. No evidence of cholelithiasis, choledocholithiasis or biliary tract obstruction per MRCP Dr. Dumas is allowing in General Surgery consultation. Tolerates diet well without any nausea and vomiting continue morphine p.r.n. for pain and Zofran p.r.n. for nausea. - Possible community acquired pneumonia per chest x-ray. Continue patient on Zosyn. Repeat chest x-ray is negative - Alcohol abuse. social worker masters refer patient to alcohol cessation counseling. Home Meds Active Scripts Hydrocodone/Acetaminophen ([place] 5-325 Tablet) 1 Each Tablet, 1 EACH PO Q4 for PAIN, #30 TAB Prov:LESLIE STEVENS 12/21/16 Metronidazole* (Flagyl*) 500 Mg Tablet, 500 MG PO Q8 for 5 Days, TAB Prov:LESLIE STEVENS 12/21/16 Levofloxacin* (Levaquin*) 500 Mg Tablet, 500 MG PO DAILY for 5 Days, TAB Prov:LESLIE STEVENS 12/21/16 Famotidine* (Famotidine*) 20 Mg Tablet, 20 MG PO DAILY for 14 Days, TAB Prov:LESLIE STEVENS 12/21/16 Follow-up Plan Follow-up with PMD in 2 weeks Primary Care Provider Not On Staff Doctor Time spent on discharge: > 30 minutes Pending Labs Laboratory Tests Test 12/21/16 04:54 White Blood Count 8.910^3/ul (4.8-10.8) Red Blood Count 3.5210^6/ul (4.20-5.40) Hemoglobin 10.1g/dl (12.0-16.0) Hematocrit 31.4% (37.0-47.0) Mean Corpuscular Volume 89.2fl (82.0-101.0) Mean Corpuscular Hemoglobin 28.7pg (29.0-33.0) Mean Corpuscular Hemoglobin Concent 32.2g/dl (32.0-37.0) Red Cell Distribution Width 15.5% (11.5-14.5) Platelet Count 32770^3/UL (140-415) Mean Platelet Volume 10.4fl (7.4-10.4) Neutrophils % 44.5% (39.0-77.0) Lymphocytes % 42.5% (15.0-51.0) Monocytes % 9.3% (0.0-11.0) Eosinophils % 2.9% (0.0-7.0) Basophils % 0.7% (0.0-2.0) Nucleated Red Blood Cells % 0.0/100WBC (0.0-0.0) Neutrophils # 4.010^3/ul (1.6-7.5) Lymphocytes # 3.810^3/ul (0.8-2.9) Monocytes # 0.810^3/ul (0.3-0.9) Eosinophils # 0.310^3/ul (0.0-0.5) Basophils # 0.110^3/ul (0.0-0.1) Nucleated Red Blood Cells # 0.010^3/ul (0.0-0.0) Sodium Level 140mmol/L (135-144) Potassium Level 4.0mmol/L (3.5-5.1) Chloride Level 104mmol/L (97-110) Carbon Dioxide Level 27mmol/L (21-31) Anion Gap 13 (8-16) Blood Urea Nitrogen 9mg/dl (7-20) Creatinine 0.74mg/dl (0.44-1.00) Glucose Level 108mg/dl (70-220) Calcium Level 9.7mg/dl (8.4-10.2) LESLIE STEVENS Dec 21, 2016 19:45
--- NOTE | 2016-12-22 07:10 | PN ---
DATE: 12/21/2016 SUBJECTIVE DATA: The patient is complaining of some sharp throbbing pain in the right upper quadrant. She claims that the pain is the same pain and the same kind in quality and nature that brought her to this hospital. She had a bowel movement today. No fever. No nausea, no vomiting. OBJECTIVE: Awake, alert, oriented x3. Lying down in the bed. Does not appear distressed. VITAL SIGNS: Temperature 98.4, heart rate 71, respirations 16, blood pressure 112/62, saturation 96 percent room air. ABDOMEN: Abdomen is soft. LABORATORY AND DIAGNOSTIC DATA: WBC today is 8,900, normal, with 44 segmented and 42 percent lymphocytes. Hemoglobin is 10.1, stable. Chemistry: Sodium, potassium, BUN, creatinine all within normal limits. As was mentioned before, last chest x-ray on 12/18 is normal and there is no evidence of pneumonia. ASSESSMENT AND PLAN: This is a 21-year-old female, who was transferred from [facility] because of abdominal pain and possibly gallbladder disease and cholecystitis. The CT scan that they did over there showed some inflammation, some edema all around the gallbladder and other peritoneal surfaces. We did MRCP here which was negative. We did HIDA scan, which was negative. A hepatitis panel was negative. Today, CBC is normal so far. Abdomen is soft, so I do not know exactly if really the patient has pain all over or she does have pain. She is using narcotic around the clock. She does not have a surgical abdomen and surgical pathology at this time that I can detect. So, we will leave it to internal medicine people to solve the problem. Dictated By: Luis Armando Dumas MD /laura/nate /Document#: [id number]
[2016-12-22] MEDS ORDERED: FAMOTIDINE 20 MG TAB PO SCH (09:00)
== END 2016-12-21 19:38 | disposition home or self-care (01) | DRG 391 ==
LOC: PP2 17:41
PROVIDERS: ADMIT Internal Medicine; ATTEND Internal Medicine
DX: R10.9 Unspecified abdominal pain (principal); J18.9 Pneumonia, unspecified organism; F10.10 Alcohol abuse, uncomplicated; Z87.19 Personal history of other diseases of the digestive system
CPT/HCPCS: 71010; 74181; 78226; 80048; 80053; 83690; 85025; 86704; 86709; 86803; 87081; 87340; 90686; A9537; J2060; J2270; J2405; J2543; J3480

== ENCOUNTER 2016-12-27 23:06 | Inpatient (IN) | payer OTHER ==
[~2016-12-27] VITALS: Ht 154.9 cm; Wt 62.0 kg
[~2016-12-27 23:06] MED LIST: FAMO20TA18 PO; HYDR-906 PO; LEVO500T72 PO; METR500T PO
[2016-12-27 23:08] VITALS: Ht 154.9 cm; Wt 62.0 kg
[2016-12-27] MEDS ORDERED: SODIUM CHLORIDE 0.9% 1L BAG IV* STA (23:22)
[2016-12-28 00:07] LABS: BASOPHIL # 0.1 10^3/ul (0.0-0.1); BASOPHILS % 1.3 % (0.0-2.0); EOSINOPHILS % 0.3 % (0.0-7.0); HEMATOCRIT 33.3 % (37.0-47.0); HEMOGLOBIN 11.1 g/dl (12.0-16.0); LYMPHOCYTES % 48.1 % (15.0-51.0); MEAN CORPUSCULAR HEMOGLOBIN 29.1 pg (29.0-33.0); MEAN CORPUSCULAR HGB CONC 33.3 g/dl (32.0-37.0); MEAN CORPUSCULAR VOLUME 87.2 fl (82.0-101.0); MEAN PLATELET VOLUME 9.6 fl (7.4-10.4); MONOCYTES % 9.6 % (0.0-11.0); NEUTROPHIL # 4.2 10^3/ul (1.6-7.5); NEUTROPHILS % 40.5 % (39.0-77.0); PLATELET COUNT 369 10^3/UL (140-415); RED BLOOD COUNT 3.82 10^6/ul (4.20-5.40); RED CELL DISTRIBUTION WIDTH 15.1 % (11.5-14.5); WHITE BLOOD COUNT 10.4 10^3/ul (4.8-10.8)
[2016-12-28 00:12] LABS: ADD UMIC YES; UR ASCORBIC ACID NEGATIVE (NEGATIVE); UR BACTERIA FEW /HPF (NONE SEEN); UR BILIRUBIN (Dip) NEGATIVE (NEGATIVE); UR BLOOD (Dip) NEGATIVE (NEGATIVE); UR CLARITY SLIGHTLY CLOUDY (CLEAR); UR COLOR YELLOW (YELLOW); UR GLUCOSE (Dip) NEGATIVE (NEGATIVE); UR KETONES (Dip) TRACE mg/dL (NEGATIVE); UR LEUKOCYTE ESTERASE (Dip) TRACE Leu/ul (NEGATIVE); UR MUCUS FEW /HPF (NONE SEEN); UR NITRITE (Dip) NEGATIVE (NEGATIVE); UR RBC 2 /HPF (0-5); UR SPECIFIC GRAVITY (Dip) 1.019 (1.003-1.030); UR SQUAMOUS EPITHELIAL CELL FEW /HPF (FEW); UR TOTAL PROTEIN (Dip) NEGATIVE (NEGATIVE); UR UROBILINOGEN (Dip) NEGATIVE (NEGATIVE)
[2016-12-28 00:35] LABS: BARBITURATES NEGATIVE (NEGATIVE); BENZODIAZEPINES POSITIVE (NEGATIVE); CANNABINOIDS NEGATIVE (NEGATIVE); COCAINE POSITIVE (NEGATIVE); OPIATES NEGATIVE (NEGATIVE)
--- NOTE | 2016-12-28 00:36 | RADRPT ---
PROCEDURE: Chest xray. CLINICAL INDICATION: Possible sepsis TECHNIQUE: A portable upright AP view of the chest was obtained. COMPARISON: 12/18/2016 FINDINGS: The cardiomediastinal silhouette is within normal limits. The lungs are well expanded and show norm al vascularity. No focal opacity, pleural effusion, or pneumothorax is identified. The skeletal st ructures and soft tissues are unremarkable. IMPRESSION: No acute intrathoracic abnormality. RPTAT:PP .Abi Restrepo MD, Date Time Electronically viewed and signed by .Abi Restrepo MD, on 12/28/2016 00:35 .K/
[2016-12-28 00:43] LABS: ALANINE AMINOTRANSFERASE 52 IU/L (13-69); ALBUMIN 4.6 g/dl (3.3-4.9); ALBUMIN/GLOBULIN RATIO 0.97; ALKALINE PHOSPHATASE 93 IU/L (42-121); ANION GAP 23 (8-16); ASPARTATE AMINO TRANSFERASE 70 IU/L (15-46); BLOOD UREA NITROGEN 17 mg/dl (7-20); CALCIUM 9.6 mg/dl (8.4-10.2); CARBON DIOXIDE 20 mmol/L (21-31); CHLORIDE 108 mmol/L (97-110); CREATININE 0.57 mg/dl (0.44-1.00); GLUCOSE 131 mg/dl (70-220); POTASSIUM 3.9 mmol/L (3.5-5.1); SODIUM 147 mmol/L (135-144); TOTAL PROTEIN 9.3 g/dl (6.1-8.1)
[2016-12-28 00:51] LABS: INR 1.09; PROTIME 14.1 Sec (12.2-14.2); PT RATIO 1.1
[2016-12-28] MEDS ORDERED: CEFEPIME 2GM/50 ML (PMX) 50 ML IVPB STA (01:04)
[2016-12-28 01:05] LABS: TROPONIN-I < 0.012 ng/ml (0.00-0.12)
[2016-12-28] MEDS ORDERED: VANCOMYCIN 1 GM (PMX) 250 ML IVPB ONE (01:30)
--- NOTE | 2016-12-28 01:39 | ERD ---
ER Documentation Chief Complaint Date/Time DATE: 12/28/16 TIME: 01:38 Chief Complaint c/o BLE pain, weakness, and numbness x 2 wks. No trauma. HPI This is a 21-year-old female here with bilateral extremity pain weakness and numbness for 2 weeks. She was recently admitted for pancreatitis and polysubstance abuse. She denies any fevers or chills. She denies any focal neurological complaints. Patient just says that she feels mildly weak. No nausea no vomiting no chills. No other current complaints. Symptomology started 2 days ago. ROS All systems reviewed and are negative except as per history of present illness. Medications Home Meds Active Scripts Hydrocodone/Acetaminophen ([place] 5-325 Tablet) 1 Each Tablet, 1 EACH PO Q4 for PAIN, #30 TAB Prov:LESLIE STEVENS 12/21/16 Metronidazole* (Flagyl*) 500 Mg Tablet, 500 MG PO Q8 for 5 Days, TAB Prov:LESLIE STEVENS 12/21/16 Levofloxacin* (Levaquin*) 500 Mg Tablet, 500 MG PO DAILY for 5 Days, TAB Prov:LESLIE STEVENS 12/21/16 Famotidine* (Famotidine*) 20 Mg Tablet, 20 MG PO DAILY for 14 Days, TAB Prov:LESLIE STEVENS 12/21/16 Allergies Allergies: Coded Allergies: No Known Allergies (Verified Allergy, Unknown, 12/15/16) PMhx/Soc Medical and Surgical Hx: pt denies Surgical Hx History of Surgery: No Anesthesia Reaction: No Hx Neurological Disorder: Yes (PATIENT STATES FATHER WITNESSED SEIZURE YESTERDAY ) Hx Respiratory Disorders: Yes (Hx: asthma ) Hx Cardiac Disorders: No Hx Psychiatric Problems: Yes (Hx: anxiety ) Hx Miscellaneous Medical Probl: No Hx Alcohol Use: Yes Hx Substance Use: No Hx Tobacco Use: No Smoking Status: Never smoker Physical Exam Vitals Vital Signs Date Time Temp Pulse Resp B/P Pulse Ox O2 Delivery O2 Flow Rate FiO2 12/27/16 23:08 98.4 120 20 119/70 96 Physical Exam Const: [] Head: Atraumatic Eyes: Normal Conjunctiva ENT: Normal External Ears, Nose and Mouth. Neck: Full range of motion..~ No meningismus. Resp: Clear to auscultation bilaterally Cardio: Regular rate and rhythm, no murmurs Abd: Soft, non tender, non distended. Normal bowel sounds Skin: No petechiae or rashes Back: No midline or flank tenderness Ext: No cyanosis, or edema Neur: Awake and alert Psych: Normal Mood and Affect Result Diagram: 12/27/16232912/27/162329 Results 24 hrs Laboratory Tests Test 12/27/16 23:30 White Blood Count 10.410^3/ul Red Blood Count 3.8210^6/ul Hemoglobin 11.1g/dl Hematocrit 33.3% Mean Corpuscular Volume 87.2fl Mean Corpuscular Hemoglobin 29.1pg Mean Corpuscular Hemoglobin Concent 33.3g/dl Red Cell Distribution Width 15.1% Platelet Count 14419^3/UL Mean Platelet Volume 9.6fl Neutrophils % 40.5% Lymphocytes % 48.1% Monocytes % 9.6% Eosinophils % 0.3% Basophils % 1.3% Nucleated Red Blood Cells % 0.0/100WBC Neutrophils # 4.210^3/ul Lymphocytes # 5.010^3/ul Monocytes # 1.010^3/ul Eosinophils # 0.010^3/ul Basophils # 0.110^3/ul Nucleated Red Blood Cells # 0.010^3/ul Prothrombin Time 14.1Sec Prothrombin Time Ratio 1.1 INR International Normalized Ratio 1.09 Activated Partial Thromboplast Time 32.0Sec Urine Color YELLOW Urine Clarity SLIGHTLY CLOUDY Urine pH 5.0 Urine Specific [place] 1.019 Urine Ketones TRACEmg/dL Urine Nitrite NEGATIVEmg/dL Urine Bilirubin NEGATIVEmg/dL Urine Urobilinogen NEGATIVEmg/dL Urine Leukocyte Esterase TRACELeu/ul Urine Microscopic RBC 2/HPF Urine Microscopic WBC 3/HPF Urine Squamous Epithelial Cells FEW/HPF Urine Bacteria FEW/HPF Urine Mucus FEW/HPF Urine Hemoglobin NEGATIVEmg/dL Urine Glucose NEGATIVEmg/dL Urine Total Protein NEGATIVEmg/dl Sodium Level 147mmol/L Potassium Level 3.9mmol/L Chloride Level 108mmol/L Carbon Dioxide Level 20mmol/L Anion Gap 23 Blood Urea Nitrogen 17mg/dl Creatinine 0.57mg/dl Glucose Level 131mg/dl Lactic Acid Level 4.6mmol/L Calcium Level 9.6mg/dl Total Bilirubin 0.0mg/dl Direct Bilirubin 0.00mg/dl Indirect Bilirubin 0.0mg/dl Aspartate Amino Transf (AST/SGOT) 70IU/L Alanine Aminotransferase (ALT/SGPT) 52IU/L Alkaline Phosphatase 93IU/L Troponin I < 0.012ng/ml Total Protein 9.3g/dl Albumin 4.6g/dl Globulin 4.70g/dl Albumin/Globulin Ratio 0.97 Lipase 54U/L Urine Opiates Screen NEGATIVE Urine Barbiturates NEGATIVE Urine Amphetamines Screen POSITIVE Urine Benzodiazepines Screen POSITIVE Urine Cocaine Screen POSITIVE Urine Cannabinoids NEGATIVE Current Medications Medications (Trade) Dose Ordered Sig/Robyn Route PRN Reason Start Time Stop Time Status Last Admin Dose Admin Sodium Chloride 1920 ml 1,920 ml BOLUS OVER 2 HOURS STAT IV* 12/27/16 23:22 12/27/16 23:23 DC 12/28/16 00:07 Cefepime HCl 50 ml @ 100 mls/hr ONCE STAT IVPB 12/28/16 01:04 12/28/16 01:33 DC 12/28/16 01:29 Vancomycin HCl (Vancocin) 250 ml @ 125 mls/hr ONCE ONCE IVPB 12/28/16 01:30 12/28/16 03:29 Procedures/MDM EKG: Rate/Rhythm: [Normal Sinus Rhythm] QRS, ST, T-waves: [No changes consistent w/ acute ischemia] Impression: [No evidence of ischemia or arrhythmia] Chest X-ray 1V Interpreted by me: Soft Tissue: No acute abnormalities Bones: No acute abnormalities Mediastinum/Cardiac Silhouette/Lungs: [No acute abnormalities] Patient's infectious symptoms have not stabilized and the patient is at risk of rapid decompensation. The patient will be admitted for careful hydration, antibiotic therapy, and infectious source control. Severe Sepsis Assessment: Infectious Source: Unknown End organ damage indicated by: [Lactate > 2.0 mmol/L Severe Sepsis Managment: Blood Cultures X 2 before broad spectrum antibiotics initiated within 3 hours of recognition. 30 ml/kg NS bolus Completed Initial Lactate: 4.3 Repeat Lactate pending Critical Care: Time: 45 minutes Treatments/Evaluations: Emergent fluid management, while maintaining close respiratory support. Immediate broad spectrum antibiotic therapy. Simultaneous assessment for possible sources in order to direct therapy. Consideration for invasive and chemical support to prevent respiratory or cardiac collapse. Septic Shock Assessment (1 hour post 30 ml/kg fluid bolus): Hypotension (SBP < 90 or 40 mmHg drop, MAP < 65): [No] Lactic acid > 4.0 yes Accepting Care Team: Current data and ongoing care discussed. Time: 149 Primary Provider: Dr. Pedroza Consulting: [XOXOX[place]] Outstanding Data: none Departure Diagnosis: Primary Impression: Sepsis Sepsis type: sepsis due to unspecified organism Qualified Code: A41.9 - Sepsis, due to unspecified organism Condition: Stable RIOS MONAHAN Dec 28, 2016 01:39
[2016-12-28] MEDS ORDERED: ONDANSETRON 4 MG INJ IV STA (02:27)
[2016-12-28] MEDS ORDERED: morphine 4 MG/ML VIAL IV STA ×2 (02:27→02:32)
[2016-12-28] MEDS: HYDROmorphONE 1 MG/ML SYG IV PRN ×5 (05:10→22:47)
[2016-12-28] MEDS ORDERED: ONDANSETRON 4 MG INJ IV PRN ×2 (10:00→11:30)
[2016-12-28] MEDS ORDERED: VANCOMYCIN IV PER PHARMACY XX SCH (11:30)
[2016-12-28] MEDS: D5W-0.45 NACL + KCL 20 MEQ 1,000 ML IV SCH ×3 (11:47→22:20)
--- NOTE | 2016-12-28 12:26 | RADRPT ---
PROCEDURE: US Lower extremity Venous. CLINICAL INDICATION: Bilateral leg swelling TECHNIQUE: Multiple sonographic images of the bilateral lower extremity deep venous system was obt ained utilizing christian scale, color-flow, compressive sonography and doppler imaging with augmentation . COMPARISON: None. FINDINGS: There is normal compressibility and flow within the bilateral common femoral, femoral and popliteal veins. Visualized portions of the calf veins are patent. IMPRESSION: No sonographic evidence for deep venous thrombosis. RPTAT:AAJJ Physician Lizett Date Time Electronically viewed and signed by Physician Lizett on 12/28/2016 12:25 /
--- NOTE | 2016-12-28 12:38 | HP ---
DATE OF ADMISSION: 12/27/2016 CHIEF COMPLAINT: Bilateral lower extremity generalized weakness and abdominal pain. HISTORY OF PRESENT ILLNESS: The patient is a 21-year-old female known to me from previous admission s. The patient was recently hospitalized for acute cholecystitis, was diagnosed at an outside [facility] and was transferred to [facility] due to insurance reasons. Patient was evalu ated by general surgery and underwent MRCP, which was negative for any cholelithiasis, choledocholit hiasis, or biliary tract obstruction. The patient was also given broad spectrum antibiotics and was discharged with p.o. antibiotics. The patient presented with abdominal pain; however, that was res olved. The patient was able to tolerate a regular diet well and was able to ambulate in the hallway . The patient also received nursing home social worker for a referral for alcohol rehabilitation; however, ref used that. The patient presented yesterday to the emergency room with complaints of bilateral lower extremity weakness and numbness. The patient also complains of abdominal pain. Denies any fever, chills. On evaluation in the emergency room, the patient noted to have tachycardic. The patient's lactic acid was elevated to 4.6. The patient underwent a chest x-ray which revealed no acute intrat horacic abnormality. Urinalysis was positive for ketones and trace leukocyte esterase. Toxicology screen, urine was positive for amphetamines, benzodiazepine, cocaine screen. When I asked if migue blackwell took everything, patient stated that she took Adderall, however, denies any drug use. Denied any alcohol use. The patient underwent a 12-lead EKG that revealed a normal sinus rhythm. The patient was given IV fluids and was started on broad spectrum antibiotics, vancomycin and cefepime. The pat iemarina was diagnosed with sepsis of unclear etiology and patient will be admitted for further evaluati on and management. The patient denies any loss of consciousness, denies any vomiting, denies headac he. Denies bilateral lower extremity swelling. Denies chest pain, denies shortness of breath. PAST MEDICAL HISTORY: Is history of GI bleed, history of pancreatitis and history of ETOH use. PAST SURGICAL HISTORY: Patient denies having any surgeries in the past. FAMILY HISTORY: Noncontributory. SOCIAL HISTORY: Patient lives at home with family. The patient is a former drinker. Denies alcoho l use for the last week. The patient denies any tobacco use, denies any illicit drug use. ALLERGIES: NO KNOWN ALLERGIES. MEDICATIONS ON ADMISSION: 1. [address]. 2. Pepcid. 3. ____ 4. Levaquin. The patient stated she completed her treatment with antibiotics after last discharge from the hospit al. REVIEW OF SYSTEMS: A 12-point review of systems is negative unless what mentioned in the HPI. PHYSICAL ASSESSMENT: GENERAL: Well-developed, well-nourished female currently is awake, alert and in no acute distress. VITAL SIGNS: Temperature is 98.9, pulse is 127, respiratory rate 24, blood pressure 104/53, oxyg en saturation 100% on 2 liters nasal cannula. HEENT: Head is atraumatic, normocephalic. Pupils equal, round, reactive to light and accommodation . Oral mucosa is pink and moist. NECK: Supple, no cervical lymphadenopathy, no thyromegaly. CHEST: Lungs clear bilaterally. There are no rhonchi, wheezes, rales noted. CARDIOVASCULAR: Normal S1, S2. The patient is slightly tachycardic. No murmurs, gallops, clicks, rubs noted. ABDOMEN: Round, soft, nondistended. Patient complains of bilateral lower quadrant tenderness as we ll as epigastric and right upper quadrant tenderness. Bowel sounds present. No rebound tenderness noted. SKIN: There is no rash, petechiae noted. NEUROLOGIC: The patient is awake, alert and oriented x4. No focal deficits noted. Motor strength 5/5 in all extremities. LABORATORY DATA: On admission, CBC: White blood cells 10.4, hemoglobin 11.1, hematocrit 33.3, plat elets 369. Chemistry: Sodium is 147, potassium 3.9, chloride 108, carbon dioxide 20, anion gap 23, BUN 17, creatinine 0.57, glucose 131. Lactic acid is 4.6, AST 70, ALT 52, alkaline phosphatase is 93, troponin less than 0.012. Lipase is 54. ASSESSMENT AND PLAN: 1. Sepsis, will continue vancomycin and cefepime. Follow up on urine and blood cultures. 2. Abdominal pain. Will obtain CT of the abdomen. Continue IV fluids. 3. Polysubstance abuse as evidenced by a urine drug screen. Continue IV fluids. CBC and CMP tomor row. Will obtain a CT of the brain ____ the patient's complaints of bilateral lower extremity weakn ess. Will continue Lovenox for venous thrombosis prophylaxis and Pepcid for peptic ulcer disease pr ophylaxis. Further recommendations based on clinical course. Plan of care discussed with Dr. Gerard patel. Dictated By: LESLIE STEVENS TRAFFIC II MANAGER for OJ KAY MD SR/NTS Conf#: [id number] DID#: [id number]
[2016-12-28] MEDS: VANCOMYCIN 1 GM (PMX) 250 ML IVPB SCH (12:39)
[2016-12-28] MEDS: CEFEPIME 1GM/50 ML (PMX) 50 ML IVPB SCH ×2 (13:08→22:18)
--- NOTE | 2016-12-28 14:42 | RADRPT ---
PROCEDURE: CT Brain without contrast. CLINICAL INDICATION: Loss of balance. TECHNIQUE: A CT of the brain without contrast was performed utilizing axial sections from the skul l base through the vertex. The patient was scanned without intravenous contrast enhancement. Sagitta l and coronal reformatted images were obtained using the data from the axial images. Total exam DLP is 720.23 mGy-cm. CTDIvol is 44.90 mGy. One or more of the following dose reduction techniques we re used: Automated exposure control, adjustment of the mA and/or kV according to patient size, use o f iterative reconstruction technique. COMPARISON: None available FINDINGS: There is normal christian-white matter differentiation. The ventricles and cisterns are normal. There is no intracranial hemorrhage or space-occupying lesion. There is no skull fracture or lytic lesion. IMPRESSION: 1. Normal noncontrast CT scan of the brain. 2. No intracranial hemorrhage. 3. If there is clinical concern regarding a posterior fossa abnormality, correlation with MRI of th e brain is advised RPTAT: QQ .Elroy Ulloa MD, Date Time Electronically viewed and signed by .Elroy Ulloa MD, on 12/28/2016 14:41 .R/
--- NOTE | 2016-12-28 15:16 | RADRPT ---
PROCEDURE: CT Abdomen and pelvis without contrast. CLINICAL INDICATION: Abdominal pain. History of pancreatitis. TECHNIQUE: CT scan of the abdomen and pelvis without contrast was performed on a multidetector hig h-resolution CT scan. . Coronal and sagittal reformatted images were obtained from the axial [facility] e images. Standard CT scan of the abdomen pelvis without contrast protocols were performed. The total exam CTDI equals 7.79 mGy and the total exam DLP equals 463.1 a mGy-cm. One or more of the following dose reduction techniques were used: - Automated exposure control. - Adjustment of the mA and/or kV according to patient size. Use of iterative reconstruction technique. COMPARISON: None. FINDINGS: There is chronic calcific pancreatitis. There is no focal pancreatic lesion demonstrated. The gallbl adder is unremarkable. No evidence of biliary ductal or pancreatic ductal dilation. Borderline splenomegaly without focal splenic lesions. Mild hepatomegaly without focal hepatic lesio ns. The adrenal glands are unremarkable. The kidneys are normal in size without calcified renal calc marilynn, hydronephrosis or intra renal masses bilaterally. The urinary bladder is distended but otherwis e unremarkable. Anteverted otherwise unremarkable uterus. No evidence of adnexal masses. The retroperitoneum is not optimally resolved however there appears to be borderline lymphadenopathy in the periaortic and intra aortocaval regions. Follow-up is suggested. No other abdominal/pelvic l ymphadenopathy. Negative for intra-abdominal free air , free fluid or abscesses. The stomach, small bowel, large bowel and appendix are unremarkable. If Abdominal pelvic wall unremarkable. Bibasilar parenchymal scarring at the lung bases otherwise unrem arkable. Unremarkable aorta. The osseous structures are unremarkable without acute osseous findings are osteo blastic/osteolytic lesions. Insulin noted is a focal area of sclerosis involving the posterior right acetabulum consistent with bone island. IMPRESSION: 1. Chronic pancreatitis. No focal pancreatic lesion. 2. Borderline splenomegaly. 3. Mild hepatomegaly. 4. Borderline retroperitoneal lymphadenopathy. Follow-up is suggested. RPTAT:AAJJ Physician Des Date Time Electronically viewed and signed by Physician Des on 12/28/2016 15:15 BM/
[2016-12-28 16:50] VITALS: TEMP 98.7
--- NOTE | 2016-12-28 16:55 | CONS ---
DATE OF ADMISSION: 12/27/2016 DATE OF CONSULTATION: 12/28/2016 TYPE OF CONSULTATION: Infectious Disease. REASON FOR CONSULTATION: Antibiotic management. HISTORY OF PRESENT ILLNESS: Lucia Calix is a 21-year-old female who comes in with bilat eral lower extremity generalized weakness and abdominal pain. Her past problems: The patient was r ecently hospitalized for acute cholecystitis. She underwent MRCP, which was negative for cholelithi asis, choledocholithiasis or biliary obstruction. She was discharged on broad spectrum antibiotics. She received some health care social worker referral for alcoholic rehabilitation but refused that. She com [place] of bilateral lower extremity weakness and numbness. She complains of abdominal pain. She de nies fever or chills. On evaluation in the emergency room, the patient was noted to be tachycardic. The patient's lactic acid was elevated at 4.6. She underwent a chest x-ray which revealed no acut e intrathoracic abnormality. Urinalysis was positive for ketones and trace leukocyte esterase. Tox icology was positive for amphetamines, benzodiazepines and cocaine. She denies drug use. She was g iven IV fluids, started on broad spectrum antibiotics, vancomycin and cefepime. Diagnosis of sepsis was made, but the etiology was unclear. PAST MEDICAL HISTORY: Operations as outlined. FAMILY HISTORY: Noncontributory. SOCIAL HISTORY: She is a former drinker. She has not had alcohol in the last week. She denies any illicit drug use. ALLERGIES: NONE TO PENICILLIN, SULFA OR FOODS. MEDICATIONS: Levaquin. REVIEW OF SYSTEMS: As per HPI. PHYSICAL EXAMINATION: GENERAL: The patient is a well-developed, well-nourished female, alert, responsive, awake and in no acute distress. VITAL SIGNS: Stable. She is afebrile. SKIN: Without generalized rash. HEENT: Within normal limits. NECK: Supple. LYMPH NODES: None palpable. CHEST: Decreased breath sounds at the bases. HEART: Without murmur or gallop. ABDOMEN: Soft, nontender, without organosplenomegaly or masses. EXTREMITIES: Without cyanosis, clubbing, or edema. RECTAL AND GENITAL: Deferred. NEUROLOGIC: No focal neurological abnormalities. ANCILLARY LABORATORY DATA: On admission, her white count was 10.4, H and H 11.1 and 33.3, platelet count 369,000. BUN and creatinine was 17/0.57. She had an anion gap of 23. Lactic acid was 4.6. Liver function tests were within normal limits. Her chest x-ray showed no acute abnormality. DVT s tudy was negative. CT scan of the abdomen and pelvis showed some chronic pancreatitis, no focal vizcaino creatic lesion borderline hepatomegaly, borderline retroperitoneal lymphadenopathy. Urine culture i s negative. Blood cultures and urine were done. I will dictate my findings to Dr. Burnett. Dictated By: AUDREY STOCK MD, JD/AMANDO Conf#: [id number] DID#: [id number]
[2016-12-28 17:29] VITALS: BP 121/76; PULSE 77; RESP 16
[2016-12-28 20:41] VITALS: BP 120/84; RESP 20
[2016-12-28] MEDS: FAMOTIDINE 20 MG INJ IV SCH (22:19)
[2016-12-29] MEDS: VANCOMYCIN 1 GM (PMX) 250 ML IVPB SCH ×2 (00:46→13:05)
[2016-12-29 02:38] VITALS: BP 124/80; RESP 20
[2016-12-29] MEDS: HYDROmorphONE 1 MG/ML SYG IV PRN ×5 (04:57→22:41)
[2016-12-29 05:19] LABS: BASOPHIL # 0.1 10^3/ul (0.0-0.1); BASOPHILS % 1.2 % (0.0-2.0); EOSINOPHILS # 0.1 10^3/ul (0.0-0.5); EOSINOPHILS % 2.4 % (0.0-7.0); HEMOGLOBIN 9.2 g/dl (12.0-16.0); LYMPHOCYTES # 2.9 10^3/ul (0.8-2.9); LYMPHOCYTES % 57.8 % (15.0-51.0); MEAN CORPUSCULAR HEMOGLOBIN 29.3 pg (29.0-33.0); MEAN CORPUSCULAR HGB CONC 32.9 g/dl (32.0-37.0); MEAN CORPUSCULAR VOLUME 89.2 fl (82.0-101.0); MEAN PLATELET VOLUME 9.4 fl (7.4-10.4); MONOCYTE # 0.6 10^3/ul (0.3-0.9); MONOCYTES % 11.6 % (0.0-11.0); NEUTROPHIL # 1.4 10^3/ul (1.6-7.5); NEUTROPHILS % 26.8 % (39.0-77.0); PLATELET COUNT 221 10^3/UL (140-415); RED BLOOD COUNT 3.14 10^6/ul (4.20-5.40); RED CELL DISTRIBUTION WIDTH 15.2 % (11.5-14.5); WHITE BLOOD COUNT 5.1 10^3/ul (4.8-10.8)
[2016-12-29 05:51] LABS: ALBUMIN 3.4 g/dl (3.3-4.9); ALBUMIN/GLOBULIN RATIO 0.94; BILIRUBIN,INDIRECT 0.6 mg/dl (0-1.1); BILIRUBIN,TOTAL 0.6 mg/dl (0.2-1.3); CALCIUM 8.3 mg/dl (8.4-10.2); CREATININE 0.56 mg/dl (0.44-1.00); MAGNESIUM 1.6 mg/dl (1.7-2.5); POTASSIUM 4.1 mmol/L (3.5-5.1)
[2016-12-29 08:28] VITALS: BP 120/80; RESP 16
[2016-12-29] MEDS: FAMOTIDINE 20 MG INJ IV SCH ×2 (08:54→20:47)
[2016-12-29] MEDS: ENOXAPARIN 30 MG/0.3 ML SYG SC SCH (09:07)
[2016-12-29] MEDS: CEFEPIME 1GM/50 ML (PMX) 50 ML IVPB SCH ×2 (09:38→20:47)
[2016-12-29] MEDS: D5W-0.45 NACL + KCL 20 MEQ 1,000 ML IV SCH ×3 (11:19→16:37)
[2016-12-29] MEDS ORDERED: FLUCONAZOLE 150 MG TAB PO ONE (14:00)
--- NOTE | 2016-12-29 15:21 | PN ---
DATE: 12/29/2016 INFECTIOUS DISEASE PROGRESS NOTE SUBJECTIVE: No acute changes. Patient is alert, feels good. Denies nausea, vomiting, diarrhea. S he still has some lower back pain all over the spinal area. WBC 5.1, platelets 221, no shift. BUN 5, creatinine 0.56. Lactic acid 1.8. MICROBIOLOGY: Blood culture negative. Urine culture growing gram-negative rods, less than 10,000 c olonies. DIAGNOSTICS: CT of the abdomen and pelvis on admission revealed chronic pancreatitis without pancre atic lesion. ANTIMICROBIALS: The patient is on: 1. Vancomycin. 2. Cefepime. PHYSICAL EXAMINATION: GENERAL: Well-developed, young woman who is alert, in no distress. HEENT: Head atraumatic, normocephalic. Sclerae anicteric. Buccal mucosa pink. She has some rash over her tongue. NECK: Supple. CHEST: Rise symmetrical. Breath sounds clear. HEART: S1, S2. ABDOMEN: Soft, bowel tones present. EXTREMITIES: Without cyanosis or edema. ASSESSMENT: 1. Systemic inflammatory response syndrome. 2. Gram-negative rods urinary tract infection. 3. Evidence of chronic pancreatitis per CT of the abdomen. 4. Questionable seizure episode prior to admission. PLAN: The patient remains stable. We will continue her on cefepime. Discontinue vancomycin. We w ill give her a dose of fluconazole and order nystatin swish for the oral thrush. Dictated By: PATRICIA YANG DIRECTOR INTERNATIONAL for AUDREY DAVENPORT/NTS Conf#: [id number] DID#: [id number]
[2016-12-29 15:57] VITALS: BP 113/74; RESP 16
[2016-12-29] MEDS: NYSTATIN SUSP 5 ML CUP PO SCH ×2 (16:37→22:41)
--- NOTE | 2016-12-29 17:27 | PN ---
Date/Time of Note Date/Time of Note DATE: 12/29/16 TIME: 17:23 Assessment/Plan VTE Prophylaxis VTE Prophylaxis Intervention: SCD's Lines/Catheters [facility] Peripheral IV Urinary Cath still in place: No Assessment/Plan Chief Complaint/Hosp Course Patient stated that she is hungry asking when she will be started on a diet. Patient complains of generalized pain. Problems: Assessment/Plan - Sepsis secondary to urinary tract infection, continue antibiotics. Dr. Eduardo is following infection disease consultation. - Gram-negative rods UTI - Abdominal pain. Dr. Valdez is asked to see patient in gastroenterology consultation - Chronic pancreatitis per CT. hepatitis panel is negative on last month admission. - Polysubstance abuse as evidenced by a urine drug screen. Further recommendations based on clinical course. Plan of care discussed with Dr. Burnett. Exam/Review of Systems Vital Signs Vitals Vital Signs Date Time Temp Pulse Resp B/P Pulse Ox O2 Delivery O2 Flow Rate FiO2 12/29/16 15:57 98.0 69 16 113/74 99 12/29/16 09:00 Nasal Cannula 2.0 Intake and Output 12/28/16 12/28/16 12/29/16 15:00 23:00 07:00 Intake Total 300 ml 1050 ml 1000 ml Balance 300 ml 1050 ml 1000 ml Exam Constitutional: alert, oriented Head: normocephalic Neck: supple Respiratory: clear to auscultation Cardiovascular: nl pulses Gastrointestinal: non-tender, soft Extremities: normal pulses Results Result Diagram: 12/29/16 0451 12/29/16 0451 Results 24 hrs Laboratory Tests Test 12/29/16 04:51 12/29/16 11:24 White Blood Count 5.1 # Red Blood Count 3.14 L Hemoglobin 9.2 L Hematocrit 28.0 L Mean Corpuscular Volume 89.2 Mean Corpuscular Hemoglobin 29.3 Mean Corpuscular Hemoglobin Concent 32.9 Red Cell Distribution Width 15.2 H Platelet Count 221 # Mean Platelet Volume 9.4 Neutrophils % 26.8 L Lymphocytes % 57.8 H Monocytes % 11.6 H Eosinophils % 2.4 Basophils % 1.2 Nucleated Red Blood Cells % 0.0 Neutrophils # 1.4 L Lymphocytes # 2.9 Monocytes # 0.6 Eosinophils # 0.1 Basophils # 0.1 Nucleated Red Blood Cells # 0.0 Sodium Level 140 Potassium Level 4.1 Chloride Level 108 Carbon Dioxide Level 26 Anion Gap 10 # Blood Urea Nitrogen 5 #L Creatinine 0.56 Glucose Level 96 Calcium Level 8.3 L Magnesium Level 1.6 L Total Bilirubin 0.6 Direct Bilirubin 0.00 Indirect Bilirubin 0.6 Aspartate Amino Transf (AST/SGOT) 49 H Alanine Aminotransferase (ALT/SGPT) 46 Alkaline Phosphatase 69 Total Protein 7.0 # Albumin 3.4 # Globulin 3.60 H Albumin/Globulin Ratio 0.94 Vancomycin Level Trough 10.2 Medications Medications Current Medications Hydromorphone HCl 1 mg 1 mg Q4H PRN IV PAIN LEVEL 7-10 Last administered on 14:20; Admin Dose 1 MG; Start 12/28/16 at 05:00 Potassium Chloride/Dextrose/ Sod Cl (D5-1/2ns + KCl 20 Meq) 1,000 ml @ 125 mls/ hr Q8H IV Last administered on 12/29/16 16:09; Admin Dose 125 MLS/HR; Start 12/28/16 at 11:19 Ondansetron HCl (Zofran Inj) 4 mg Q6H PRN IV NAUSEA AND/OR VOMITING; Start 12/28/16 at 11:30 Famotidine (Pepcid Iv) 20 mg Q12 IV Last administered on 12/29/16 08:54; Admin Dose 20 MG; Start 12/28/16 at 21:00 Enoxaparin Sodium 30 mg 30 mg DAILY SC Last administered on 12/29/16 09:07; Admin Dose 30 MG; Start 12/29/16 at 09:00 Cefepime HCl (Maxipime 1gm/50 ml (Pmx)) 50 ml @ 100 mls/hr Q12 IVPB Last administered on 12/29/16 09:38; Admin Dose 100 MLS/HR; Start 12/28/16 at 12:30 Nystatin (Nystatin Susp) 5 ml QID PO Last administered on 12/29/16 16:37; Admin Dose 5 ML; Start 12/29/16 at 17:00 LESLIE STEVENS Dec 29, 2016 17:27
[2016-12-29 20:00] VITALS: BP 107/67; RESP 19
[2016-12-30] MEDS: D5W-0.45 NACL + KCL 20 MEQ 1,000 ML IV SCH ×3 (01:59→19:55)
[2016-12-30] MEDS: HYDROmorphONE 1 MG/ML SYG IV PRN ×6 (03:00→23:45)
--- NOTE | 2016-12-30 03:48 | CONS ---
DATE OF ADMISSION: 12/28/2016 DATE OF CONSULTATION: GASTROINTESTINAL CONSULTATION Dear Dr. Kay: Thank you for asking me to see Yogi in GI consultation. HISTORY OF PRESENT ILLNESS: The patient is a 21-year-old female admitted to the hospital a couple of days ago with a history of abdominal pain. She is found to have calcific pancreatitis on the CAT scan of the abdomen. She says she used to drink alcohol heavily until recently, but she di d drink alcohol until a week ago. She did have one episode of vomiting blood about a week ago. Harper flynn is the second admission in the past several weeks to this hospital. She did have vomiting and aleyda rrhea from time to time. No history of prior endoscopy done. No history of prior abdominal surgery . PAST MEDICAL HISTORY: She has a history of having no other medical problems from the medical standp oint. MEDICATIONS PRIOR TO THE ADMISSION: Include: 1. [place]. 2. Pepcid. 3. Levaquin. PHYSICAL EXAMINATION: GENERAL: The patient is a 21-year-old female who, at this time, she is alert, she is well built. VITAL SIGNS: She is afebrile, blood pressure is 113/74, pulse is 69. CARDIOVASCULAR: Normal heart sounds. RESPIRATORY: Normal breath sounds. ABDOMEN: Shows soft abdomen with no palpable masses. She does have epigastric tenderness to a mini mal degree. LABORATORY WORKUP: Potassium 4.1, sodium 140, BUN is 5, creatinine is 0.56. Serum lipase is 54, T 49, ALT 46, alkaline phosphatase 69. CAT scan of the abdomen shows evidence of chronic calcific p ancreatitis, borderline splenomegaly, mild hepatomegaly. CLINICAL IMPRESSION: The patient is presenting with history of abdominal pain secondary to acute ex acerbation of a chronic calcific pancreatitis. CAT scan of the abdomen does not show the pancreatic duct adequately because of CAT scan done without contrast. She obstructed pancreatic duct wh ich could have been caused by the calcifications. There is no biliary obstruction. Etiology of chr onic calcific pancreatitis is probably alcoholic etiology. PLAN: At this time, recommend MRCP, and she also may need upper endoscopy to rule out esophageal va rices or peptic ulcer disease. Depending upon MRCP, she may need ERCP as well. Once again, doctor, thank you for this consultation. Dictated By: KENDRA ERWIN/AMANDO VERA: 12/29/2016 18:43:02 Conf#: [id number] [facility]#: [id number] CC: OJ KAY MD;*EndCC*
[2016-12-30 05:04] LABS: BASOPHIL # 0.1 10^3/ul (0.0-0.1); BASOPHILS % 0.9 % (0.0-2.0); EOSINOPHILS # 0.2 10^3/ul (0.0-0.5); EOSINOPHILS % 2.8 % (0.0-7.0); HEMATOCRIT 28.3 % (37.0-47.0); HEMOGLOBIN 9.3 g/dl (12.0-16.0); LYMPHOCYTES # 2.9 10^3/ul (0.8-2.9); LYMPHOCYTES % 54.7 % (15.0-51.0); MEAN CORPUSCULAR HEMOGLOBIN 29.1 pg (29.0-33.0); MEAN CORPUSCULAR HGB CONC 32.9 g/dl (32.0-37.0); MEAN CORPUSCULAR VOLUME 88.4 fl (82.0-101.0); MEAN PLATELET VOLUME 9.8 fl (7.4-10.4); MONOCYTE # 0.6 10^3/ul (0.3-0.9); MONOCYTES % 11.6 % (0.0-11.0); NEUTROPHIL # 1.6 10^3/ul (1.6-7.5); PLATELET COUNT 203 10^3/UL (140-415); RED CELL DISTRIBUTION WIDTH 14.5 % (11.5-14.5); WHITE BLOOD COUNT 5.3 10^3/ul (4.8-10.8)
[2016-12-30 05:28] LABS: ANION GAP 9 (8-16); CALCIUM 8.8 mg/dl (8.4-10.2); CARBON DIOXIDE 30 mmol/L (21-31); CHLORIDE 104 mmol/L (97-110); CREATININE 0.56 mg/dl (0.44-1.00); GLUCOSE 114 mg/dl (70-220); POTASSIUM 4.3 mmol/L (3.5-5.1); SODIUM 139 mmol/L (135-144)
[2016-12-30 05:31] LABS: BLOOD UREA NITROGEN < 2 mg/dl (7-20)
[2016-12-30 07:42] VITALS: BP 114/67; RESP 18
--- NOTE | 2016-12-30 08:16 | RADRPT ---
PROCEDURE: MRCP. CLINICAL INDICATION: Abdominal pain, pancreatitis. TECHNIQUE: MRCP was performed. Patient was examined without contrast. 3-D coronal rotating MIP i mages of the biliary tree are available for review. COMPARISON: CT, 12/28/2016 FINDINGS: The gallbladder is unremarkable. No gallstone, gallbladder wall thickening or pericholecystic inflam mation is identified. There is no intra or extrahepatic biliary dilatation. No common duct stone, st ricture or filling defect is identified. Pancreatic duct is normal in caliber. The liver is enlarged (20 cm) and demonstrates surface nodularity, concerning for cirrhosis. Nonspec ific diffusely heterogeneous T2 signal is seen throughout the liver, possibly reflecting fibrosis. S mall amount of perihepatic ascites is identified. Splenomegaly is noted measuring 13 cm. Pancreas, a drenal glands and kidneys are unremarkable. There is no obstructive uropathy. The stomach is partial ly collapsed, but appears grossly unremarkable. Abdominal aorta is normal in caliber. There is no retroperitoneal or elie hepatis lymphadenopathy. No bowel obstruction or abscess is identified. The surrounding osseous structures are unremarkable. IMPRESSION: 1. Hepatomegaly and cirrhosis are noted. Nonspecific diffusely heterogeneous T2 signal is seen thro ughout the liver, possibly representing fibrosis, poorly evaluated without IV contrast. 2. Splenomegaly and small amount of perihepatic ascites are noted, which can be seen in the setting of cirrhosis. 3. No evidence of cholelithiasis, cholecystitis, biliary dilatation, or choledocholithiasis is iden tified. 4. No MRI evidence of acute pancreatitis is seen. RPTAT: RR .Real Bower MD, Date Time Electronically viewed and signed by .Real Bower MD, MD on 12/30/2016 08:16 .R/
[2016-12-30] MEDS: NYSTATIN SUSP 5 ML CUP PO SCH ×4 (09:00→21:00)
[2016-12-30] MEDS: FAMOTIDINE 20 MG INJ IV SCH ×3 (09:00→22:17)
[2016-12-30] MEDS: CEFEPIME 1GM/50 ML (PMX) 50 ML IVPB SCH ×2 (09:25→22:17)
[2016-12-30] MEDS: ENOXAPARIN 30 MG/0.3 ML SYG SC SCH (09:26)
[2016-12-30 14:00] VITALS: BP 100/59; RESP 18
--- NOTE | 2016-12-30 15:52 | PN ---
Date/Time of Note Date/Time of Note DATE: 12/30/16 TIME: 15:49 Assessment/Plan VTE Prophylaxis VTE Prophylaxis Intervention: SCD's Lines/Catheters [facility] Peripheral IV Central line still needed: Yes Urinary Cath still in place: No Assessment/Plan Chief Complaint/Hosp Course Pt is s/p MRCP, tolerates clear liquid diet well, pending endoscopy today. Assessment/Plan - Sepsis secondary to urinary tract infection, continue antibiotics. Dr. Eduardo is following infection disease consultation. - E- coli UTI - Abdominal pain. Dr. Valdez is asked to see patient in gastroenterology consultation - Chronic pancreatitis per CT. hepatitis panel is negative on last month admission. - Polysubstance abuse as evidenced by a urine drug screen. Further recommendations based on clinical course. Plan of care discussed with Dr. Burnett. Problems: Exam/Review of Systems Vital Signs Vitals Vital Signs Date Time Temp Pulse Resp B/P Pulse Ox O2 Delivery O2 Flow Rate FiO2 12/30/16 14:00 98.4 63 18 100/59 99 12/30/16 08:00 Nasal Cannula 2.0 Intake and Output 12/29/16 12/29/16 12/30/16 15:00 23:00 07:00 Intake Total 1050 ml 675 ml 1000 ml Balance 1050 ml 675 ml 1000 ml Exam Constitutional: alert, oriented Head: normocephalic Neck: supple Respiratory: clear to auscultation Cardiovascular: nl pulses Gastrointestinal: non-tender, soft Extremities: normal pulses Results Result Diagram: 12/30/16 0448 12/30/16 0448 Results 24 hrs Laboratory Tests Test 12/30/16 04:48 White Blood Count 5.3 Red Blood Count 3.20 L Hemoglobin 9.3 L Hematocrit 28.3 L Mean Corpuscular Volume 88.4 Mean Corpuscular Hemoglobin 29.1 Mean Corpuscular Hemoglobin Concent 32.9 Red Cell Distribution Width 14.5 Platelet Count 203 Mean Platelet Volume 9.8 Neutrophils % 30.0 L Lymphocytes % 54.7 H Monocytes % 11.6 H Eosinophils % 2.8 Basophils % 0.9 Nucleated Red Blood Cells % 0.0 Neutrophils # 1.6 Lymphocytes # 2.9 Monocytes # 0.6 Eosinophils # 0.2 Basophils # 0.1 Nucleated Red Blood Cells # 0.0 Sodium Level 139 Potassium Level 4.3 Chloride Level 104 Carbon Dioxide Level 30 Anion Gap 9 Blood Urea Nitrogen < 2 L Creatinine 0.56 Glucose Level 114 Calcium Level 8.8 Medications Medications Current Medications Hydromorphone HCl 1 mg 1 mg Q4H PRN IV PAIN LEVEL 7-10 Last administered on 15:19; Admin Dose 1 MG; Start 12/28/16 at 05:00 Potassium Chloride/Dextrose/ Sod Cl (D5-1/2ns + KCl 20 Meq) 1,000 ml @ 125 mls/ hr Q8H IV Last administered on 12/30/16 11:01; Admin Dose 125 MLS/HR; Start 12/28/16 at 11:19 Ondansetron HCl (Zofran Inj) 4 mg Q6H PRN IV NAUSEA AND/OR VOMITING; Start 12/28/16 at 11:30 Famotidine (Pepcid Iv) 20 mg Q12 IV Last administered on 12/30/16 11:31; Admin Dose 20 MG; Start 12/28/16 at 21:00 Enoxaparin Sodium 30 mg 30 mg DAILY SC Last administered on 12/30/16 09:26; Admin Dose 30 MG; Start 12/29/16 at 09:00 Cefepime HCl (Maxipime 1gm/50 ml (Pmx)) 50 ml @ 100 mls/hr Q12 IVPB Last administered on 12/30/16 09:25; Admin Dose 100 MLS/HR; Start 12/28/16 at 12:30 Nystatin (Nystatin Susp) 5 ml QID PO Last administered on 12/29/16 22:41; Admin Dose 5 ML; Start 12/29/16 at 17:00 LESLIE STEVENS Dec 30, 2016 15:52
--- NOTE | 2016-12-30 18:35 | CONS ---
Date/Time of Note Date/Time of Note DATE: 12/30/16 TIME: 18:34 Consultation Date/Type/Reason Admit Date/Time Dec 28, 2016 at 15:23 Initial Consult Date abd pain persists mrcp no cbd stones Reason for Consultation abd pain 24 HR Interval Summary Free Text/Dictation persistant abd pain neg mrcp r/o pud Exam/Review of Systems Vital Signs Vitals Vital Signs Date Time Temp Pulse Resp B/P Pulse Ox O2 Delivery O2 Flow Rate FiO2 12/30/16 14:00 98.4 63 18 100/59 99 12/30/16 08:00 Nasal Cannula 2.0 Intake and Output 12/29/16 12/29/16 12/30/16 15:00 23:00 07:00 Intake Total 1050 ml 675 ml 1000 ml Balance 1050 ml 675 ml 1000 ml Results Result Diagram: 12/30/16 0448 12/30/16 0448 Results 24 hrs Laboratory Tests Test 12/30/16 04:48 White Blood Count 5.3 Red Blood Count 3.20 L Hemoglobin 9.3 L Hematocrit 28.3 L Mean Corpuscular Volume 88.4 Mean Corpuscular Hemoglobin 29.1 Mean Corpuscular Hemoglobin Concent 32.9 Red Cell Distribution Width 14.5 Platelet Count 203 Mean Platelet Volume 9.8 Neutrophils % 30.0 L Lymphocytes % 54.7 H Monocytes % 11.6 H Eosinophils % 2.8 Basophils % 0.9 Nucleated Red Blood Cells % 0.0 Neutrophils # 1.6 Lymphocytes # 2.9 Monocytes # 0.6 Eosinophils # 0.2 Basophils # 0.1 Nucleated Red Blood Cells # 0.0 Sodium Level 139 Potassium Level 4.3 Chloride Level 104 Carbon Dioxide Level 30 Anion Gap 9 Blood Urea Nitrogen < 2 L Creatinine 0.56 Glucose Level 114 Calcium Level 8.8 Medications Medications Current Medications Hydromorphone HCl 1 mg 1 mg Q4H PRN IV PAIN LEVEL 7-10 Last administered on 15:19; Admin Dose 1 MG; Start 12/28/16 at 05:00 Potassium Chloride/Dextrose/ Sod Cl (D5-1/2ns + KCl 20 Meq) 1,000 ml @ 125 mls/ hr Q8H IV Last administered on 12/30/16 11:01; Admin Dose 125 MLS/HR; Start 12/28/16 at 11:19 Ondansetron HCl (Zofran Inj) 4 mg Q6H PRN IV NAUSEA AND/OR VOMITING; Start 12/28/16 at 11:30 Famotidine (Pepcid Iv) 20 mg Q12 IV Last administered on 12/30/16 11:31; Admin Dose 20 MG; Start 12/28/16 at 21:00 Enoxaparin Sodium 30 mg 30 mg DAILY SC Last administered on 12/30/16 09:26; Admin Dose 30 MG; Start 12/29/16 at 09:00 Cefepime HCl (Maxipime 1gm/50 ml (Pmx)) 50 ml @ 100 mls/hr Q12 IVPB Last administered on 12/30/16 09:25; Admin Dose 100 MLS/HR; Start 12/28/16 at 12:30 Nystatin (Nystatin Susp) 5 ml QID PO Last administered on 12/30/16 18:11; Admin Dose 5 ML; Start 12/29/16 at 17:00 KENDRA HELM MD Dec 30, 2016 18:35
[2016-12-30 20:00] VITALS: BP 118/72; RESP 19
--- NOTE | 2016-12-30 20:34 | RADRPT ---
Echocardiogram Report Patient Name: MAURA BLAS Gender: Female Date: 1995 Study Date: 30-Dec-2016 Youth Minister: EDWIN Location: [facility] Ref. Physician: LESLIE STEVENS Quality: Good Procedures: Transthoracic echocardiogram with complete 2D, M-Mode, and doppler examination. Indications: R/O Vegetation. 2D/M Mode Doppler Measurement Value Normal Ranges Measurement Value Normal Ranges AoR Diam MM 2.7 cm KEESHA Vmax 2.4 cm2 ACS MM 2.0 cm KEESHA VTI 2.4 cm2 LA/Ao MM 1.3 AV Peak Srinivas 1.1 m/sec LA Dimen MM 3.5 cm AV Peak PG 4.8 mmHg LVIDd 2D 4.6 3.5 - 5.6 cm LVOT Peak Srinivas 1.0 m/sec LVIDs 2D 3.0 2.1 - 4.1 cm LVOT Peak PG 3.8 mmHg LVPWd 2D 0.9 0.6 - 1.1 cm MV E Peak Srinivas 0.9 m/sec IVSd 2D 0.9 0.6 - 1.1 cm MV A Peak Srinivas 0.5 m/sec EDV 2D 95.4 cm3 MV E/A 1.9 ESV 2D 28.4 cm3 MV Decel Time 128 msec LVOT Diam 1.9 cm MV Decel Sullivan 7 MV E/A 1.9 TR Peak Srinivas 2.4 m/sec TR Peak PG 22.8 mmHg Findings Left Ventricle: Normal left ventricular systolic function. Overall, normal left ventricular systolic function. Not all segments visualized. Normal left ventricular cavity size. Ejection fraction is visually estimated at 5055 %. These segments of the LV are hypokinetic inferoseptum mid segment. Right Ventricle: Normal right ventricular size. Left Atrium: The left atrium is normal in size. Right Atrium: The right atrium is normal in size. Mitral Valve: Trace mitral regurgitation by color. Aortic Valve: Normal appearance of the aortic valve. Tricuspid Valve: Estimated peak PA systolic pressure 28 mmHg. There is mild tricuspid regurgitation. Pericardium: Normal pericardium with no significant pericardial effusion. Aorta: Normal aortic root. IVC: Dilated IVC with respiratory collapse consistent with elevated right atrial pressure. Conclusions 1.No Vegetation, masses, or thrombi seen. 2.Normal left ventricular systolic function. Overall, normal left ventricular systolic function. Not all segments visualized. Normal left ventricular cavity size. Ejection fraction is visually estimated at 50-55 %. These segments of the LV are hypokinetic inferoseptum mid segment. 3.Trace mitral regurgitation by color. 4.Estimated peak PA systolic pressure 28 mmHg. There is mild tricuspid regurgitation. Electronically Signed By: Adriano Sharma 30-Dec-2016 20:34:02 -0700 Patient Name: MAURA BLAS Study Date: 30-Dec-2016 [id number]
--- NOTE | 2016-12-30 22:02 | CONS ---
Date/Time of Note Date/Time of Note DATE: 12/30/16 TIME: 22:00 Consult Date/Type/Reason Admit Date/Time Dec 28, 2016 at 15:23 Initial Consult Date Type of Consultation: ID Objective Vital Signs Date Time Temp Pulse Resp B/P Pulse Ox O2 Delivery O2 Flow Rate FiO2 12/30/16 20:00 98.6 89 19 118/72 94 12/30/16 08:00 Nasal Cannula 2.0 Intake and Output 12/29/16 12/29/16 12/30/16 15:00 23:00 07:00 Intake Total 1050 ml 675 ml 1000 ml Balance 1050 ml 675 ml 1000 ml Results/Medications Result Diagram: 12/30/16 0448 12/30/16 0448 Results 24 hrs Laboratory Tests Test 12/30/16 04:48 White Blood Count 5.3 Red Blood Count 3.20 L Hemoglobin 9.3 L Hematocrit 28.3 L Mean Corpuscular Volume 88.4 Mean Corpuscular Hemoglobin 29.1 Mean Corpuscular Hemoglobin Concent 32.9 Red Cell Distribution Width 14.5 Platelet Count 203 Mean Platelet Volume 9.8 Neutrophils % 30.0 L Lymphocytes % 54.7 H Monocytes % 11.6 H Eosinophils % 2.8 Basophils % 0.9 Nucleated Red Blood Cells % 0.0 Neutrophils # 1.6 Lymphocytes # 2.9 Monocytes # 0.6 Eosinophils # 0.2 Basophils # 0.1 Nucleated Red Blood Cells # 0.0 Sodium Level 139 Potassium Level 4.3 Chloride Level 104 Carbon Dioxide Level 30 Anion Gap 9 Blood Urea Nitrogen < 2 L Creatinine 0.56 Glucose Level 114 Calcium Level 8.8 Medications Current Medications Hydromorphone HCl 1 mg 1 mg Q4H PRN IV PAIN LEVEL 7-10 Last administered on 19:55; Admin Dose 1 MG; Start 12/28/16 at 05:00 Potassium Chloride/Dextrose/ Sod Cl (D5-1/2ns + KCl 20 Meq) 1,000 ml @ 125 mls/ hr Q8H IV Last administered on 12/30/16 19:55; Admin Dose 125 MLS/HR; Start 12/28/16 at 11:19 Ondansetron HCl (Zofran Inj) 4 mg Q6H PRN IV NAUSEA AND/OR VOMITING; Start 12/28/16 at 11:30 Famotidine (Pepcid Iv) 20 mg Q12 IV Last administered on 12/30/16 11:31; Admin Dose 20 MG; Start 12/28/16 at 21:00 Enoxaparin Sodium 30 mg 30 mg DAILY SC Last administered on 12/30/16 09:26; Admin Dose 30 MG; Start 12/29/16 at 09:00 Cefepime HCl (Maxipime 1gm/50 ml (Pmx)) 50 ml @ 100 mls/hr Q12 IVPB Last administered on 12/30/16 09:25; Admin Dose 100 MLS/HR; Start 12/28/16 at 12:30 Nystatin (Nystatin Susp) 5 ml QID PO Last administered on 12/30/16 18:11; Admin Dose 5 ML; Start 12/29/16 at 17:00 Assessment/Plan Chief Complaint/Hosp Course SUBJECTIVE: No acute changes. Patient is alert, feels good. Denies nausea, vomiting, diarrhea. Wants to eat, some pressure with urination, no fevers MICROBIOLOGY: Blood culture negative. Urine culture growing gram-negative rods , less than 10,000 colonies. DIAGNOSTICS: CT of the abdomen and pelvis on admission revealed chronic pancreatitis without pancreatic lesion. ANTIMICROBIALS: Cefepime. PHYSICAL EXAMINATION: GENERAL: Well-developed, young woman who is alert, in no distress. HEENT: Head atraumatic, normocephalic. Sclerae anicteric. Buccal mucosa pink. She has some rash over her tongue. NECK: Supple. CHEST: Rise symmetrical. Breath sounds clear. HEART: S1, S2. ABDOMEN: Soft, bowel tones present. EXTREMITIES: Without cyanosis or edema. ASSESSMENT: 1. Systemic inflammatory response syndrome. 2. Gram-negative rods urinary tract infection. 3. Evidence of chronic pancreatitis per CT of the abdomen. 4. Questionable seizure episode prior to admission. PLAN: The patient remains stable. Continue present care, abx, await for final cx, GI rec-s Problems: PATRICIA YANG NP Dec 30, 2016 22:02
[2016-12-31 02:00] VITALS: BP 110/64; RESP 18
[2016-12-31] MEDS: HYDROmorphONE 1 MG/ML SYG IV PRN ×5 (03:36→19:58)
[2016-12-31] MEDS: D5W-0.45 NACL + KCL 20 MEQ 1,000 ML IV SCH ×4 (03:36→23:12)
[2016-12-31 05:15] LABS: BASOPHIL # 0.1 10^3/ul (0.0-0.1); BASOPHILS % 0.7 % (0.0-2.0); EOSINOPHILS # 0.2 10^3/ul (0.0-0.5); EOSINOPHILS % 2.6 % (0.0-7.0); HEMATOCRIT 29.3 % (37.0-47.0); HEMOGLOBIN 9.6 g/dl (12.0-16.0); LYMPHOCYTES # 3.6 10^3/ul (0.8-2.9); LYMPHOCYTES % 51.7 % (15.0-51.0); MEAN CORPUSCULAR HEMOGLOBIN 28.4 pg (29.0-33.0); MEAN CORPUSCULAR HGB CONC 32.8 g/dl (32.0-37.0); MEAN CORPUSCULAR VOLUME 86.7 fl (82.0-101.0); MEAN PLATELET VOLUME 10.4 fl (7.4-10.4); MONOCYTE # 0.7 10^3/ul (0.3-0.9); MONOCYTES % 9.8 % (0.0-11.0); NEUTROPHIL # 2.4 10^3/ul (1.6-7.5); NEUTROPHILS % 35.1 % (39.0-77.0); PLATELET COUNT 222 10^3/UL (140-415); RED BLOOD COUNT 3.38 10^6/ul (4.20-5.40); RED CELL DISTRIBUTION WIDTH 14.6 % (11.5-14.5); WHITE BLOOD COUNT 6.9 10^3/ul (4.8-10.8)
[2016-12-31 05:43] LABS: ANION GAP 10 (8-16); CARBON DIOXIDE 30 mmol/L (21-31); CHLORIDE 102 mmol/L (97-110); CREATININE 0.53 mg/dl (0.44-1.00); GLUCOSE 103 mg/dl (70-220); POTASSIUM 4.3 mmol/L (3.5-5.1); SODIUM 138 mmol/L (135-144)
[2016-12-31 05:53] LABS: BLOOD UREA NITROGEN < 2 mg/dl (7-20)
[2016-12-31 07:57] VITALS: BP 114/66; RESP 18
[2016-12-31] MEDS: CEFEPIME 1GM/50 ML (PMX) 50 ML IVPB SCH (08:36)
[2016-12-31] MEDS: ENOXAPARIN 30 MG/0.3 ML SYG SC SCH (09:00)
[2016-12-31] MEDS: NYSTATIN SUSP 5 ML CUP PO SCH ×4 (09:00→21:01)
[2016-12-31] MEDS: ALLOPURINOL 300 MG TAB PO SCH (09:00)
[2016-12-31] MEDS: FAMOTIDINE 20 MG INJ IV SCH ×2 (09:51→21:02)
[2016-12-31] MEDS: CEFTRIAXONE 1 GM/50 ML (PMX) 50 ML IVPB SCH (10:48)
[2016-12-31 12:52] VITALS: BP 113/74; RESP 18
[2016-12-31] MEDS ORDERED: PROPOFOL 40 ML ONE (13:31)
[2016-12-31] MEDS ORDERED: LIDOCAINE 100 MG SYRINGE ONE (13:31)
--- NOTE | 2016-12-31 13:59 | OPPN ---
Date/Time of Note Date/Time of Note DATE: 12/31/16 TIME: 13:57 Proc Note GI Procedure Date 12/31/16 Indication: diagnostic Pre-procedure Diagnosis abd pain Post-procedure Diagnosis gastritis mild Procedure Performed: Endoscopy Surgeon see signature line Furnace Tender none Anesthesia Type: MAC Anesthesiologist: LUISANA PETTIT MD Tourniquet Time none EBL none Transfusion required none Biopsy 1: gastric Grafts/Implants none Tubes/Drains none Complication(s) none Disposition: PACU Procedure Description egd gastritis KENDRA HELM MD Dec 31, 2016 13:59
[2016-12-31] MEDS ORDERED: ATROPINE 1 MG/10 ML SYRINGE ONE (14:04)
--- NOTE | 2016-12-31 14:29 | PN ---
DATE: 12/31/2016 INFECTIOUS DISEASE PROGRESS NOTE SUBJECTIVE: Patient is awake, looks comfortable, no fevers. Denies pain. WBC today 6.9, no shift, no bands. BUN 2, creatinine 0.53. MICROBIOLOGY: Urine culture grew E. coli, lactobacillus species and coagulase-negative staph specie s. ANTIMICROBIALS: The patient is on Rocephin, status post Zosyn. PHYSICAL EXAMINATION: GENERAL: Well-developed young woman who is alert, in no distress. HEENT: Head atraumatic, normocephalic. Sclerae anicteric. Buccal mucosa dry. NECK: Supple. CHEST: Rise symmetrical. Breath sounds clear. HEART: S1, S2. ABDOMEN: Soft. Bowel sounds present. ASSESSMENT: 1. Systemic inflammatory response syndrome. 2. Escherichia coli urinary tract infection. 3. Chronic pancreatitis. 4. Evidence of cirrhosis per CT report. MRI of the abdomen findings. 5. Questionable seizure episode prior to admission. 6. Polysubstance abuse. PLAN: The patient remains stable. Gastroenterology on case. She still has mild abdominal discomfo rt. Dictated By: PATRICIA YANG CHANGE ANALYST for AUDREY STOCK MD NI/NTS Conf#: [id number] DID#: [id number]
[2016-12-31 19:20] VITALS: BP 112/64; RESP 18
--- NOTE | 2016-12-31 20:42 | PN ---
Date/Time of Note Date/Time of Note DATE: 12/31/16 TIME: 20:41 Assessment/Plan Lines/Catheters IV Catheter Type (from [facility]): Peripheral IV Urinary Cath still in place: No Assessment/Plan Chief Complaint/Hosp Course - Sepsis secondary to urinary tract infection, continue antibiotics. Dr. Eduardo is following infection disease consultation. - E- coli UTI - Abdominal pain. Dr. Valdez is asked to see patient in gastroenterology consultation - Chronic pancreatitis per CT. hepatitis panel is negative on last month admission. - Polysubstance abuse as evidenced by a urine drug screen. Further recommendations based on clinical course. Plan of care discussed with Dr. Burnett. Problems: Exam/Review of Systems Vital Signs Vitals Vital Signs Date Time Temp Pulse Resp B/P Pulse Ox O2 Delivery O2 Flow Rate FiO2 12/31/16 19:20 98.7 71 18 112/64 98 12/31/16 10:34 Nasal Cannula 2.0 Intake and Output 12/30/16 12/30/16 12/31/16 15:00 23:00 07:00 Intake Total 650 ml 1690 ml 1400 ml Balance 650 ml 1690 ml 1400 ml Results Result Diagram: 12/31/16 0436 12/31/16 0436 Results 24 hrs Laboratory Tests Test 12/31/16 04:36 White Blood Count 6.9 # Red Blood Count 3.38 L Hemoglobin 9.6 L Hematocrit 29.3 L Mean Corpuscular Volume 86.7 Mean Corpuscular Hemoglobin 28.4 L Mean Corpuscular Hemoglobin Concent 32.8 Red Cell Distribution Width 14.6 H Platelet Count 222 Mean Platelet Volume 10.4 Neutrophils % 35.1 L Lymphocytes % 51.7 H Monocytes % 9.8 Eosinophils % 2.6 Basophils % 0.7 Nucleated Red Blood Cells % 0.0 Neutrophils # 2.4 Lymphocytes # 3.6 H Monocytes # 0.7 Eosinophils # 0.2 Basophils # 0.1 Nucleated Red Blood Cells # 0.0 Sodium Level 138 Potassium Level 4.3 Chloride Level 102 Carbon Dioxide Level 30 Anion Gap 10 Blood Urea Nitrogen < 2 L Creatinine 0.53 Glucose Level 103 Calcium Level 9.0 Medications Medications Current Medications Hydromorphone HCl 1 mg 1 mg Q4H PRN IV PAIN LEVEL 7-10 Last administered on t 19:58; Admin Dose 1 MG; Start 12/28/16 at 05:00 Potassium Chloride/Dextrose/ Sod Cl (D5-1/2ns + KCl 20 Meq) 1,000 ml @ 125 mls/ hr Q8H IV Last administered on 12/31/16 14:55; Admin Dose 125 MLS/HR; Start 12/28/16 at 11:19 Ondansetron HCl (Zofran Inj) 4 mg Q6H PRN IV NAUSEA AND/OR VOMITING; Start 12/28/16 at 11:30 Famotidine (Pepcid Iv) 20 mg Q12 IV Last administered on 12/31/16 09:51; Admin Dose 20 MG; Start 12/28/16 at 21:00 Enoxaparin Sodium (Lovenox) 30 mg DAILY SC Last administered on 12/30/16 09: 26; Admin Dose 30 MG; Start 12/29/16 at 09:00 Nystatin (Nystatin Susp) 5 ml QID PO Last administered on 12/31/16 17:34; Admin Dose 5 ML; Start 12/29/16 at 17:00 Allopurinol 300 mg 300 mg DAILY PO ; Start 12/31/16 at 09:00 Ceftriaxone Sodium (Rocephin) 50 ml @ 100 mls/hr Q24H IVPB Last administered on 12/31/16 10:48; Admin Dose 100 MLS/HR; Start 12/31/16 at 10:30 TALIB FISCHER Dec 31, 2016 20:42
[2017-01-01] MEDS: HYDROmorphONE 1 MG/ML SYG IV PRN ×4 (00:07→12:24)
[2017-01-01 02:20] VITALS: BP 124/63; RESP 18
--- NOTE | 2017-01-01 06:13 | GILP ---
DATE OF PROCEDURE: PROCEDURE: Esophagogastroduodenoscopy. PREOPERATIVE DIAGNOSIS: Patient presenting with history of abdominal pain unresponsive to routine t herapy. No evidence of any other obvious pathology noted. Rule out peptic ulcer disease. POSTOPERATIVE DIAGNOSIS: Mild antral gastritis. Rest of the esophagus and duodenum appeared normal . DESCRIPTION OF PROCEDURE: After the informed written consent was obtained, the patient was asked to lie on the left lateral side. Intravenous anesthesia was given by anesthesiologist, Dr. Cason. W hen the patient became somnolent, the Olympus video upper endoscope was introduced into the orophary nx, then into the esophagus. Esophagus showed normal mucosal pattern. Stomach was examined, which showed minimal erythema in the antrum. Rest of the stomach and the fundus appeared normal. Mucosa of the duodenum appeared normal up to the end of the third portion. Scope at this time was withdraw n and no additional abnormalities detected and the procedure was terminated. PLAN: Recommend proton pump inhibitor therapy, omeprazole 40 mg a day. Dictated By: KENDRA ERWIN/AMANDO Conf#: [id number] DID#: [id number] CC: OJ KAY MD;*EndCC*
[2017-01-01 08:00] VITALS: BP 111/71; RESP 18
[2017-01-01] MEDS: D5W-0.45 NACL + KCL 20 MEQ 1,000 ML IV SCH ×2 (08:09→11:19)
[2017-01-01] MEDS: FAMOTIDINE 20 MG INJ IV SCH (08:09)
[2017-01-01] MEDS: NYSTATIN SUSP 5 ML CUP PO SCH ×2 (08:09→12:25)
[2017-01-01] MEDS: ALLOPURINOL 300 MG TAB PO SCH (08:09)
[2017-01-01] MEDS: ENOXAPARIN 30 MG/0.3 ML SYG SC SCH (08:23)
[2017-01-01] MEDS: CEFTRIAXONE 1 GM/50 ML (PMX) 50 ML IVPB SCH (11:30)
[2017-01-01 14:00] VITALS: BP 101/64; RESP 18
[2017-01-01] MEDS ORDERED: FAMO20TA18 PO (15:13)
[2017-01-01] MEDS ORDERED: HYDR-906 PO (15:13)
[2017-01-01] MEDS ORDERED: CEPH-442 PO (15:13)
--- NOTE | 2017-01-01 15:59 | RADRPT ---
Vent Rate: 57 bpm RR Interval: 0 msec AR Interval: 148 msec QRS Duration: 80 msec QT Interval: 436 msec QTC Interval: 424 msec P-R-T [place]: 35 - 28 - 30 degrees Sinus bradycardia with sinus arrhythmia Otherwise normal ECG Electronically Signed By: Canelo Lobo [id number]
[2017-01-01] MEDS ORDERED: FAMOTIDINE 20 MG TAB PO SCH (21:00)
--- NOTE | 2017-01-04 07:55 | PN ---
DATE: 01/01/2017 SUBJECTIVE: No acute changes per report. The patient is sleeping, no fevers. She had an EGD yeste rday that revealed mild gastritis. Urine culture on admission grew E. coli. She is on IV Rocephin. PHYSICAL EXAMINATION: GENERAL: Well-developed young woman in no distress. HEENT: Head atraumatic, normocephalic. Sclerae anicteric. Buccal mucosa pink. NECK: Supple. CHEST: Rise symmetrical. Breath sounds clear. HEART: S1, S2. ABDOMEN: Soft. Bowel tones present. ASSESSMENT: 1. Status post systemic inflammatory response syndrome. 2. Escherichia coli urinary tract infection. 3. Abdominal pain, likely secondary to chronic pancreatitis. 4. Polysubstance abuse. 5. Abnormal MRI of the abdomen with no evidence of cirrhosis. Cirrhosis with splenomegaly per MRI of the abdomen. PLAN: The patient remains stable. She is being followed by gastroenterology. Anticipate discharge home on oral Keflex when she is medically cleared to complete 7 days' antibiotics. Dictated By: PATRICIA YANG SKI PATROLLER for AUDREY DAVENPORT/AMANDO Conf#: [id number] DID#: [id number]
== END 2017-01-01 16:30 | disposition home or self-care (01) | DRG 872 ==
LOC: E/R 23:06 → MS1 12-28 15:23
PROVIDERS: ADMIT Internal Medicine; ATTEND Internal Medicine
PROC: 0DB78ZX Excision of Stomach, Pylorus, Via Natural or Artificial Opening Endoscopic, Diagnostic (ICD-10-PCS; principal; 2016-12-28)
DX: A41.9 Sepsis, unspecified organism (principal); K86.1 Other chronic pancreatitis; R56.9 Unspecified convulsions; N39.0 Urinary tract infection, site not specified; F19.10 Other psychoactive substance abuse, uncomplicated; R10.9 Unspecified abdominal pain; R53.1 Weakness; B96.20 Unspecified Escherichia coli [E. coli] as the cause of diseases classified elsewhere; K29.70 Gastritis, unspecified, without bleeding
CPT/HCPCS: 36415; 70450; 71010; 74176; 74181; 80048; 80053; 80202; 80307; 81001; 83605; 83690; 83735; 84484; 85025; 85610; 85730; 87040; 87086; 88305; 88312; 93005; 93306; 93970; 96361; 96365; 96366; 96375; 96376; J0461; J0692; J0696; J1170; J1650; J2001; J2270; J2405; J3370; J3480; J7030

== ENCOUNTER 2017-01-08 22:42 | Emergency (ER) | payer OTHER ==
[~2017-01-08] VITALS: Ht 165.1 cm; Wt 60.5 kg
[~2017-01-08 22:42] MED LIST changes: +CEPH-442 PO; -LEVO500T72 PO; -METR500T PO
[2017-01-09 00:39] VITALS: Ht 165.1 cm; Wt 60.5 kg
--- NOTE | 2017-01-09 03:07 | ERD ---
ER Documentation Chief Complaint Chief Complaint upper abd pain x 1 weeek HPI The patient is a 21-year-old female, presenting to the ER because of epigastric abdominal pain intermittently for 1 week, she has been drinking yesterday. She has similar symptoms previously, she had extensively workup a week ago when she was hospitalized including the MRI of the abdomen on December 30, 2016 that shows cirrhosis and hepatomegaly. She denies fever, chills, neck pain, chest pain, dysuria, diarrhea. She smokes and drinks, history of amphetamine and cocaine. Past medical history: Hepatomegaly, cirrhosis, chronic pancreatitis Past surgical history: EGD on December 31, 2016 that showed gastritis ROS All systems reviewed and are negative except as per history of present illness. Medications Home Meds Discontinued Scripts Hydrocodone/Acetaminophen ([place] 5-325 Tablet) 1 Each Tablet, 1 EACH PO Q4 for PAIN, #20 TAB Prov:LESLIE STEVENS 01/01/17 Famotidine* (Famotidine*) 20 Mg Tablet, 20 MG PO DAILY for 14 Days, #30 TAB Prov:LESLIE STEVENS 01/01/17 Cephalexin* (Keflex*) 250 Mg Capsule, 250 MG PO Q8 for 5 Days, #21 CAP Prov:LESLIE STEVENS 01/01/17 Allergies Allergies: Coded Allergies: No Known Allergies (Unverified Allergy, Unknown, 01/09/17) PMhx/Soc History of Surgery: No Anesthesia Reaction: No Hx Neurological Disorder: Yes (seizures, per pt ) Hx Cardiac Disorders: No Hx Psychiatric Problems: Yes (anxiety) Hx Miscellaneous Medical Probl: Yes (UTI, ovarian cyst, pancreatic cyst) Hx Alcohol Use: Yes Hx Substance Use: No Hx Tobacco Use: No Smoking Status: Never smoker Physical Exam Vitals Vital Signs Date Time Temp Pulse Resp B/P Pulse Ox O2 Delivery O2 Flow Rate FiO2 01/09/17 06:35 98.1 115 24 102/56 95 Room Air 01/09/17 06:24 119 20 102/56 99 Room Air 01/09/17 04:00 103 22 114/81 99 Room Air 01/09/17 00:39 98.1 94 20 116/71 97 Physical Exam Const: No acute distress. Head: Atraumatic. Eyes: Normal Conjunctiva. ENT: Normal External Ears, Nose and Mouth. Neck: Full range of motion. No meningismus. Resp: Clear to auscultation bilaterally. Cardio: Regular rate and rhythm. Abd: Soft, non distended, normal bowel sounds, non tender. Skin: No petechiae or rashes. Back: No midline or flank tenderness. Ext: No cyanosis, or edema. Neur: Awake and alert. No focal deficit Psych: Normal Mood and Affect. Result Diagram: 01/09/17 0500 01/09/17 0500 Results 24 hrs Laboratory Tests Test 01/09/17 03:31 01/09/17 03:38 01/09/17 03:45 01/09/17 05:00 Urine Color STRAW Urine Clarity CLEAR Urine pH 5.0 Urine Specific [place] 1.010 Urine Ketones NEGATIVEmg/dL Urine Nitrite NEGATIVEmg/dL Urine Bilirubin NEGATIVEmg/dL Urine Urobilinogen NEGATIVEmg/dL Urine Leukocyte Esterase NEGATIVELeu/ul Urine Microscopic RBC > 182/HPF Urine Microscopic WBC 1/HPF Urine Hemoglobin 3+mg/dL Urine Glucose NEGATIVEmg/dL Urine Total Protein NEGATIVEmg/dl Bedside Urine pH (LAB) 5.5 Bedside Urine Protein (LAB) Negative Bedside Urine Glucose (UA) Negative Bedside Urine Ketones (LAB) Negative Bedside Urine Blood 3+ Bedside Urine Nitrite (LAB) Negative Bedside Urine Leukocyte Esterase (L Negative Lactic Acid Level 1.7mmol/L 1.7mmol/L White Blood Count 8.510^3/ul Red Blood Count 3.3510^6/ul Hemoglobin 9.7g/dl Hematocrit 29.1% Mean Corpuscular Volume 86.9fl Mean Corpuscular Hemoglobin 29.0pg Mean Corpuscular Hemoglobin Concent 33.3g/dl Red Cell Distribution Width 15.4% Platelet Count 28170^3/UL Mean Platelet Volume 9.9fl Neutrophils % 31.5% Lymphocytes % 59.6% Monocytes % 7.3% Eosinophils % 0.4% Basophils % 0.8% Nucleated Red Blood Cells % 0.0/100WBC Neutrophils # 2.710^3/ul Lymphocytes # 5.110^3/ul Monocytes # 0.610^3/ul Eosinophils # 0.010^3/ul Basophils # 0.110^3/ul Nucleated Red Blood Cells # 0.010^3/ul Prothrombin Time 14.7Sec Prothrombin Time Ratio 1.1 INR International Normalized Ratio 1.15 Activated Partial Thromboplast Time 29.7Sec Sodium Level 154mmol/L Potassium Level 4.0mmol/L Chloride Level 118mmol/L Carbon Dioxide Level 24mmol/L Anion Gap 16 Blood Urea Nitrogen 6mg/dl Creatinine 0.51mg/dl Glucose Level 87mg/dl Calcium Level 8.2mg/dl Total Bilirubin 0.0mg/dl Direct Bilirubin 0.00mg/dl Indirect Bilirubin 0.0mg/dl Aspartate Amino Transf (AST/SGOT) 39IU/L Alanine Aminotransferase (ALT/SGPT) 36IU/L Alkaline Phosphatase 88IU/L Total Protein 7.3g/dl Albumin 3.4g/dl Globulin 3.90g/dl Albumin/Globulin Ratio 0.87 Lipase 93U/L Ethyl Alcohol Level 340.0mg/dl Current Medications Medications (Trade) Dose Ordered Sig/Robyn Route PRN Reason Start Time Stop Time Status Last Admin Dose Admin Sodium Chloride 1,000 ml @ 1,000 mls/hr Q1H ONCE IV 01/09/17 03:30 01/09/17 04:29 Cancel Sodium Chloride (NS) 1,880 ml @ 1,880 mls/hr BOLUS X1 ONCE IV 01/09/17 03:30 01/09/17 04:29 DC 01/09/17 03:55 Miscellaneous Medication (Gi Cocktail (2)) 40 ml ONCE ONCE PO 01/09/17 04:30 01/09/17 04:31 DC 01/09/17 04:27 Miscellaneous Medication (Gi Cocktail (2)) 40 ml ONCE ONCE PO 01/09/17 05:00 01/09/17 05:01 DC Lorazepam (Ativan) 1 mg ONCE ONCE PO 01/09/17 05:00 01/09/17 05:01 DC 01/09/17 05:27 Procedures/MDM MEDICAL MAKING DECISION: The patient is a 21-year-old female, presenting with acute on chronic epigastric abdominal pain, most likely due to gastritis, acute alcohol intoxication.. She was treated with normosaline 30 mL/kg IV for acute clinical dehydration, GI cocktail for epigastric abdominal discomfort Ativan 1 mg IV for alcohol abuse with good response. She does not have any sign or symptom of withdrawal, impending DT. She is stable for outpatient follow-up The differential diagnoses considered include but are not limited to cholelithiasis, cholecystitis, cystitis, pancreatitis, hepatitis, gastritis, peptic ulcer disease, gastric ulcer, appendicitis, diverticulitis, cholangitis, choledocholithiasis, partial small bowel obstruction. Departure Diagnosis: Primary Impression: Alcohol abuse Additional Impression: Gastritis Condition: Good Comments I discussed the findings with the patient. I advised the patient to follow-up with the primary physician in about 1-2 days, sooner if needed and return if any concern. She will be discharged back to her parents when she misael KAYLEE IRBY MD Jan 09, 2017 03:07
[2017-01-09] MEDS ORDERED: SOD CHLORIDE 0.9% IV ONE (03:30)
[2017-01-09] MEDS ORDERED: SOD CHLORIDE 0.9% 1,000 ML IV ONE (03:30)
[2017-01-09 03:38] LABS: URINE BLOOD (Dip) POC 3+ (NEGATIVE)
[2017-01-09 04:11] LABS: ADD UMIC YES; UR ASCORBIC ACID NEGATIVE (NEGATIVE); UR BILIRUBIN (Dip) NEGATIVE (NEGATIVE); UR BLOOD (Dip) 3+ mg/dL (NEGATIVE); UR CLARITY CLEAR (CLEAR); UR COLOR STRAW (YELLOW); UR GLUCOSE (Dip) NEGATIVE (NEGATIVE); UR KETONES (Dip) NEGATIVE (NEGATIVE); UR LEUKOCYTE ESTERASE (Dip) NEGATIVE Leu/ul (NEGATIVE); UR NITRITE (Dip) NEGATIVE (NEGATIVE); UR RBC > 182 /HPF (0-5); UR TOTAL PROTEIN (Dip) NEGATIVE (NEGATIVE); UR UROBILINOGEN (Dip) NEGATIVE (NEGATIVE)
[2017-01-09] MEDS ORDERED: LIDOCAINE/MYLANTA 40 ML BTL PO ONE ×2 (04:30→05:00)
[2017-01-09] MEDS ORDERED: LORAZEPAM 1 MG TAB PO ONE (05:00)
--- NOTE | 2017-01-09 05:13 | RADRPT ---
PROCEDURE: CHEST - 1 VIEW CLINICAL INDICATION: 21-year-old female with shortness of breath and sepsis. TECHNIQUE: A single frontal AP portable view of the chest was performed. The images were reviewed on a PACS workstation. COMPARISON: Chest x-ray December 27, 2016. FINDINGS: The cardiomediastinal silhouette has a normal appearance. There is no evidence for an infiltrate. T he pulmonary vascularity is within normal limits. There is no evidence for pneumothorax or pneumomed iastinum. The osseous structures are intact. IMPRESSION: No evidence for active cardiopulmonary disease. .Benson Toth MD, Date Time Electronically viewed and signed by .Benson Toth MD, on 01/09/2017 05:13 .Krish/
[2017-01-09 05:44] LABS: ABNORMAL IP MESSAGE 1; BASOPHIL # 0.1 10^3/ul (0.0-0.1); BASOPHILS % 0.8 % (0.0-2.0); EOSINOPHILS % 0.4 % (0.0-7.0); HEMATOCRIT 29.1 % (37.0-47.0); HEMOGLOBIN 9.7 g/dl (12.0-16.0); LYMPHOCYTES # 5.1 10^3/ul (0.8-2.9); LYMPHOCYTES % 59.6 % (15.0-51.0); MEAN CORPUSCULAR HGB CONC 33.3 g/dl (32.0-37.0); MEAN CORPUSCULAR VOLUME 86.9 fl (82.0-101.0); MEAN PLATELET VOLUME 9.9 fl (7.4-10.4); MONOCYTE # 0.6 10^3/ul (0.3-0.9); MONOCYTES % 7.3 % (0.0-11.0); NEUTROPHIL # 2.7 10^3/ul (1.6-7.5); NEUTROPHILS % 31.5 % (39.0-77.0); PLATELET COUNT 278 10^3/UL (140-415); RED BLOOD COUNT 3.35 10^6/ul (4.20-5.40); RED CELL DISTRIBUTION WIDTH 15.4 % (11.5-14.5); WHITE BLOOD COUNT 8.5 10^3/ul (4.8-10.8)
[2017-01-09 05:47] LABS: POSITIVE DIFF @See below
[2017-01-09 05:57] LABS: INR 1.15; PROTIME 14.7 Sec (12.2-14.2); PT RATIO 1.1
[2017-01-09 05:58] LABS: PARTIAL THROMBOPLASTIN TIME 29.7 Sec (25.0-35.0)
[2017-01-09 06:02] LABS: ALBUMIN 3.4 g/dl (3.3-4.9); ALBUMIN/GLOBULIN RATIO 0.87; CALCIUM 8.2 mg/dl (8.4-10.2); CREATININE 0.51 mg/dl (0.44-1.00); TOTAL PROTEIN 7.3 g/dl (6.1-8.1)
[2017-01-09 06:35] VITALS: BP 102/56; PULSE 115; RESP 24; TEMP 98.1
[2017-01-09 07:53] LABS: BARBITURATES NEGATIVE (NEGATIVE); BENZODIAZEPINES NEGATIVE (NEGATIVE); CANNABINOIDS NEGATIVE (NEGATIVE); COCAINE NEGATIVE (NEGATIVE); OPIATES NEGATIVE (NEGATIVE)
== END 2017-01-09 08:25 | disposition home or self-care (01) ==
LOC: FTE 22:42 → E/R 01-09 08:25
DX: F10.10 Alcohol abuse, uncomplicated (principal); K29.70 Gastritis, unspecified, without bleeding
CPT/HCPCS: 36415; 71010; 80053; 80306; 80307; 81001; 83605; 83690; 85025; 85610; 85730; 87040; 87086; J7030; Z7502; Z7610; 81003; 93005